=== PATIENT | female | born 1950 | race Caucasian/White ===

== ENCOUNTER → 2016-09-20 | Outpatient (CLI) | payer MEDICARE, OTHER ==
[~2016-09-20] MED LIST: BENA10TA2 PO; CYCL5TA PO; FE G325T PO; HYDR-3713 PO; LOVA20TA2 PO; METF500T PO; OMEP40CA2 PO
[2016-09-20 13:23] LABS: BASO % 0.3 % (0.0-1.0); EOS # 0.2 K/mm3 (0.0-0.50); EOS % 2.3 % (0.0-3.0); LARGE UNSTAINED CELL # 0.3 K/mm3 (0.0-0.4); LARGE UNSTAINED CELL % 3.2 % (0.0-4.0); LYMPH # 1.5 K/mm3 (1.5-4.5); LYMPH % 17.8 % (24.0-44.0); MEAN CORPUSCULAR HEMOGLOBIN 31.9 pg (27.0-33.0); MEAN CORPUSCULAR VOLUME 96.4 fl (80.0-96.0); MONO # 0.5 K/mm3 (0.0-0.8); MONO % 5.7 % (0.0-5.0); NEUTROPHILS # 5.8 K/mm3 (1.8-7.7); NEUTROPHILS % 70.7 % (36.0-66.0); PLATELET COUNT, AUTOMATED 307 k/mm3 (150-450); RED CELL DISTRIBUTION WIDTH 12.2 % (11.5-14.5); WHITE BLOOD COUNT 8.1 K/mm3 (4.0-10.0)
[2016-09-20 13:48] LABS: ALBUMIN 3.6 GM/DL (3.2-5.2); ALKALINE PHOSPHATASE 120 U/L (45-117); ALT/SGPT 19 U/L (12-78); ANION GAP 5 MEQ/L (8-16); AST/SGOT 15 U/L (15-37); BILIRUBIN,TOTAL 0.5 MG/DL (0.2-1.0); BLOOD UREA NITROGEN 11 MG/DL (7-18); CALCIUM LEVEL 8.7 MG/DL (8.8-10.2); CARBON DIOXIDE LEVEL 31 MEQ/L (21-32); CHLORIDE LEVEL 103 MEQ/L (98-107); CHOLESTEROL LEVEL 189 MG/DL (<200); CREATININE FOR GFR 0.76 MG/DL (0.55-1.02); GLOMERULAR FILTRATION RATE > 60.0 (>45); GLUCOSE, FASTING 112 MG/DL (80-110); POTASSIUM SERUM 4.6 MEQ/L (3.5-5.1); SODIUM LEVEL 139 MEQ/L (136-145); TOTAL PROTEIN 7.2 GM/DL (6.4-8.2); TRIGLYCERIDES LEVEL 152 MG/DL (<150)
== END ==
LOC: M WUC 08:45
PROVIDERS: ATTEND Nurse Practitioner Family
DX: D50.9 Iron deficiency anemia, unspecified (principal); I10 Essential (primary) hypertension; Z79.899 Other long term (current) drug therapy; E56.9 Vitamin deficiency, unspecified; E78.4 Other hyperlipidemia

== ENCOUNTER → 2016-09-21 | Outpatient (CLI) | payer MEDICARE, OTHER ==
--- NOTE | 2016-09-21 13:26 | REP ---
DIGITAL DIAGNOSTIC UNILATERAL RIGHT BREAST MAMMOGRAM WITH CAD: HISTORY: 6-month followup stereotactic needle biopsy for microcalcifications. Benign histology by history. Comparison is made with February 21, 2016 and February 17, 2015 prior mammography. FINDINGS: There are microcalcifications from the biopsy cluster remaining in place unchanged. No mass lesion is seen. There is a stable centrally/fat replaced nodule in the upper outer quadrant on the right unchanged. No neodensity is seen. IMPRESSION: BIRADS category 2 benign right breast mammography. Annual screening mammography can be resumed. BI-RADS/ACR category 2 mammogram. Benign finding(s). Routine annual screening mammography (for women over age 40). This mammogram was interpreted with the aid of an FDA-approved computer-aided detection system. The patient states she/he had a clinical breast exam in March 21, 2016. The patient letter being requested is M2. Signed by Nghia Orozco MD 09/21/2016 02:42 P
== END ==
LOC: M RAD 12:18
PROVIDERS: ATTEND Nurse Practitioner Family
DX: Z09 Encounter for follow-up examination after completed treatment for conditions other than malignant neoplasm (principal); R92.0 Mammographic microcalcification found on diagnostic imaging of breast

== ENCOUNTER → 2016-12-04 | Outpatient (CLI) | payer MEDICARE, OTHER ==
[2016-12-04 18:25] LABS: BASO % 0.4 % (0.0-1.0); EOS # 0.2 K/mm3 (0.0-0.50); EOS % 1.9 % (0.0-3.0); LARGE UNSTAINED CELL # 0.2 K/mm3 (0.0-0.4); LARGE UNSTAINED CELL % 2.1 % (0.0-4.0); LYMPH # 2.1 K/mm3 (1.5-4.5); LYMPH % 16.2 % (24.0-44.0); MEAN CORPUSCULAR HGB CONC 32.8 g/dl (32.0-36.5); MEAN CORPUSCULAR VOLUME 97.6 fl (80.0-96.0); MONO # 0.8 K/mm3 (0.0-0.8); NEUTROPHILS # 8.5 K/mm3 (1.8-7.7); NEUTROPHILS % 72.5 % (36.0-66.0); PLATELET COUNT, AUTOMATED 268 k/mm3 (150-450); RED CELL DISTRIBUTION WIDTH 12.4 % (11.5-14.5); WHITE BLOOD COUNT 11.7 K/mm3 (4.0-10.0)
== END ==
LOC: M WUC 14:34
PROVIDERS: ATTEND Nurse Practitioner Family
DX: K21.9 Gastro-esophageal reflux disease without esophagitis (principal); D63.8 Anemia in other chronic diseases classified elsewhere

== ENCOUNTER → 2017-02-26 | Outpatient (CLI) | payer MEDICARE, OTHER ==
[~2017-02-26] MED LIST changes: -BENA10TA2 PO; +BENA10TA6 PO; -METF500T PO; +METF500T13 PO
--- NOTE | 2017-02-27 07:59 | REPMRS ---
Patient History The patient states she had a clinical breast exam in 01/2017. Patient is postmenopausal and is nulliparous. Family history of ovarian cancer in mother at age 88 and breast cancer in mother at age 34. Benign radio exam breast specimen of the right breast, March 27, 2016. Benign stereotatic loc for ea lesion of the right breast, March 27, 2016. 2 benign excisional biopsies of the left breast. Benign excisional biopsy of the right breast. Digital Woman Screen Mammo: February 26, 2017 - Exam #: [id number] Bilateral CC and MLO view(s) were taken. Technologist: Kiana Bennett Technologist Prior study comparison: September 21, 2016, right breast digital mammo diagnostic unilateral, performed at . February 21, 2016, digital woman screen mammo performed at [facility]. February 17, 2015, digital woman screen mammo performed at [facility]. FINDINGS: There are scattered fibroglandular densities. There has been no change in the appearance of the mammogram from the prior studies. There is a mild amount of scattered fibroglandular density which is fairly symmetric. There is no interval development of dominant mass, architectural distortion, or clustered microcalcification suggestive of malignancy. ASSESSMENT: BI-RADS/ACR category 1 mammogram. Negative. Recommendation Routine screening mammogram in 1 year (for women over age 40). This mammogram was interpreted with the aid of an FDA-approved computer-aided dectection system. Electronically Signed By: Sumeet Orozco MD 02/27/17 0759
== END ==
LOC: M WHC 14:35
PROVIDERS: ATTEND Nurse Practitioner Family
DX: Z01.419 Encounter for gynecological examination (general) (routine) without abnormal findings (principal); Z12.31 Encounter for screening mammogram for malignant neoplasm of breast; Z92.89 Personal history of other medical treatment; Z12.12 Encounter for screening for malignant neoplasm of rectum; Z92.0 Personal history of contraception
CPT/HCPCS: 82270; G0101; G0202

== ENCOUNTER → 2017-04-02 | Outpatient (CLI) | payer MEDICARE, OTHER ==
[2017-04-02 10:22] LABS: BASO # 0.1 K/mm3 (0.0-0.2); BASO % 0.7 % (0.0-1.0); EOS # 0.2 K/mm3 (0.0-0.50); EOS % 2.1 % (0.0-3.0); LARGE UNSTAINED CELL # 0.2 K/mm3 (0.0-0.4); LARGE UNSTAINED CELL % 2.7 % (0.0-4.0); LYMPH # 1.7 K/mm3 (1.5-4.5); LYMPH % 18.9 % (24.0-44.0); MEAN CORPUSCULAR HEMOGLOBIN 32.5 pg (27.0-33.0); MEAN CORPUSCULAR HGB CONC 32.9 g/dl (32.0-36.5); MEAN CORPUSCULAR VOLUME 98.7 fl (80.0-96.0); MONO # 0.5 K/mm3 (0.0-0.8); MONO % 6.2 % (0.0-5.0); NEUTROPHILS # 5.5 K/mm3 (1.8-7.7); NEUTROPHILS % 69.5 % (36.0-66.0); PLATELET COUNT, AUTOMATED 271 k/mm3 (150-450); RED CELL DISTRIBUTION WIDTH 12.8 % (11.5-14.5); WHITE BLOOD COUNT 7.9 K/mm3 (4.0-10.0)
[2017-04-02 10:40] LABS: BLOOD UREA NITROGEN 14 MG/DL (7-18); CREATININE FOR GFR 0.67 MG/DL (0.55-1.02); GLOMERULAR FILTRATION RATE > 60.0 (>45); GLUCOSE, FASTING 129 MG/DL (80-110)
[2017-04-02 10:41] LABS: ALBUMIN 3.4 GM/DL (3.2-5.2); ALBUMIN/GLOBULIN RATIO 1.03 (1.00-1.93); ALKALINE PHOSPHATASE 119 U/L (45-117); ALT/SGPT 20 U/L (12-78); ANION GAP 9 MEQ/L (8-16); AST/SGOT 13 U/L (15-37); BILIRUBIN,TOTAL 0.5 MG/DL (0.2-1.0); CALCIUM LEVEL 9.2 MG/DL (8.8-10.2); CARBON DIOXIDE LEVEL 28 MEQ/L (21-32); CHLORIDE LEVEL 103 MEQ/L (98-107); CHOLESTEROL LEVEL 190 MG/DL (<200); SODIUM LEVEL 140 MEQ/L (136-145); TOTAL PROTEIN 6.7 GM/DL (6.4-8.2); TRIGLYCERIDES LEVEL 127 MG/DL (<150)
== END ==
LOC: M WUC 08:23
PROVIDERS: ATTEND Nurse Practitioner Family
DX: K21.9 Gastro-esophageal reflux disease without esophagitis (principal); D63.8 Anemia in other chronic diseases classified elsewhere; E56.9 Vitamin deficiency, unspecified; Z79.899 Other long term (current) drug therapy; E11.9 Type 2 diabetes mellitus without complications; I10 Essential (primary) hypertension

== ENCOUNTER → 2017-10-31 | Outpatient (CLI) | payer MEDICARE, OTHER ==
[2017-10-31 13:25] LABS: BASO # 0.1 10^3/uL (0.0-0.2); BASO % 0.6 % (0.0-1.0); EOS # 0.1 10^3/uL (0.0-0.50); EOS % 1.8 % (0.0-3.0); HEMATOCRIT 44.2 % (36.0-47.0); HEMOGLOBIN 14.6 g/dl (12.0-16.0); IMMATURE GRANULOCYTE % 0.3 % (0-3.0); LYMPH # 1.6 10^3/uL (1.5-4.5); LYMPH % 20.6 % (24.0-44.0); MEAN CORPUSCULAR HEMOGLOBIN 31.3 pg (27.0-33.0); MEAN CORPUSCULAR VOLUME 94.8 fl (80.0-96.0); MONO # 0.7 10^3/uL (0.0-0.8); MONO % 8.2 % (0.0-5.0); NEUTROPHILS # 5.5 10^3/uL (1.8-7.7); NEUTROPHILS % 68.5 % (36.0-66.0); PLATELET COUNT, AUTOMATED 297 10^3/uL (150-450); RED BLOOD COUNT 4.66 10^6/uL (4.00-5.40); RED CELL DISTRIBUTION WIDTH 12.8 % (11.5-14.5)
[2017-10-31 14:16] LABS: ALBUMIN 3.5 GM/DL (3.2-5.2); ALBUMIN/GLOBULIN RATIO 0.92 (1.00-1.93); ALKALINE PHOSPHATASE 128 U/L (45-117); ALT/SGPT 17 U/L (12-78); ANION GAP 9 MEQ/L (8-16); AST/SGOT 16 U/L (7-37); BILIRUBIN,TOTAL 0.5 MG/DL (0.2-1.0); BLOOD UREA NITROGEN 12 MG/DL (7-18); CALCIUM LEVEL 8.7 MG/DL (8.8-10.2); CARBON DIOXIDE LEVEL 28 MEQ/L (21-32); CHLORIDE LEVEL 102 MEQ/L (98-107); CHOLESTEROL LEVEL 193 MG/DL (<200); CHOLESTEROL RISK RATIO 5.078 (<5); CREATININE FOR GFR 0.74 MG/DL (0.55-1.30); GLOMERULAR FILTRATION RATE > 60.0 (>45); GLUCOSE, FASTING 105 MG/DL (70-100); HDL CHOLESTEROL 38 MG/DL (>40); IRON (FE) 80 UG/DL (50-170); LDL CHOLESTEROL 123.4 MG/DL (<100); NON-HDL-C 155 MG/DL; POTASSIUM SERUM 4.9 MEQ/L (3.5-5.1); SODIUM LEVEL 139 MEQ/L (136-145); TOTAL PROTEIN 7.3 GM/DL (6.4-8.2); TRIGLYCERIDES LEVEL 158 MG/DL (<150)
[2017-10-31 14:45] LABS: ESTIMATED AVERAGE GLUCOSE 137 MG/DL (60-110); HEMOGLOBIN A1c 6.4 %
[2017-10-31 15:07] LABS: TOTAL 25(OH) VITAMIN D 18.5 NG/ML (30.0-100.0)
== END ==
LOC: M WUC 10:10
DX: E56.9 Vitamin deficiency, unspecified (principal); D63.8 Anemia in other chronic diseases classified elsewhere; E11.9 Type 2 diabetes mellitus without complications; I10 Essential (primary) hypertension; E78.4 Other hyperlipidemia; Z79.899 Other long term (current) drug therapy
CPT/HCPCS: 83540

== ENCOUNTER → 2018-01-28 | Outpatient (CLI) | payer MEDICARE, OTHER ==
[2018-01-28 18:53] LABS: TOTAL 25(OH) VITAMIN D 33.4 NG/ML (30.0-100.0)
== END ==
LOC: M WUC 14:09
DX: E56.9 Vitamin deficiency, unspecified (principal)
CPT/HCPCS: 82306

== ENCOUNTER → 2018-05-07 | Outpatient (CLI) | payer MEDICARE, OTHER ==
[2018-05-07 12:16] LABS: BASO % 0.3 % (0.0-1.0); EOS # 0.2 10^3/uL (0.0-0.50); EOS % 1.3 % (0.0-3.0); HEMATOCRIT 43.3 % (36.0-47.0); HEMOGLOBIN 14.1 g/dl (12.0-15.5); IMMATURE GRANULOCYTE % 0.6 % (0-3.0); LYMPH # 1.6 10^3/uL (1.5-4.5); LYMPH % 13.6 % (24.0-44.0); MEAN CORPUSCULAR HGB CONC 32.6 g/dl (32.0-36.5); MEAN CORPUSCULAR VOLUME 98.4 fl (80.0-96.0); MONO # 0.9 10^3/uL (0.0-0.8); MONO % 8.1 % (0.0-5.0); NEUTROPHILS # 8.8 10^3/uL (1.8-7.7); NEUTROPHILS % 76.1 % (36.0-66.0); PLATELET COUNT, AUTOMATED 289 10^3/uL (150-450); RED CELL DISTRIBUTION WIDTH 12.6 % (11.5-14.5); WHITE BLOOD COUNT 11.6 10^3/uL (4.0-10.0)
[2018-05-07 12:41] LABS: CHOLESTEROL LEVEL 189 MG/DL (<200); CHOLESTEROL RISK RATIO 5.108 (<5); HDL CHOLESTEROL 37 MG/DL (>40); LDL CHOLESTEROL 115.2 MG/DL (<100); NON-HDL-C 152 MG/DL; TRIGLYCERIDES LEVEL 184 MG/DL (<150)
[2018-05-07 13:11] LABS: TOTAL 25(OH) VITAMIN D 31.9 NG/ML (30.0-100.0)
[2018-05-07 15:56] LABS: ESTIMATED AVERAGE GLUCOSE 146 MG/DL (60-110); HEMOGLOBIN A1c 6.7 %
== END ==
LOC: M WUC 10:37
DX: E78.4 Other hyperlipidemia (principal); E11.9 Type 2 diabetes mellitus without complications; E56.9 Vitamin deficiency, unspecified; K21.9 Gastro-esophageal reflux disease without esophagitis
CPT/HCPCS: 83036

== ENCOUNTER → 2018-11-12 | Outpatient (CLI) | payer MEDICARE, OTHER ==
[2018-11-12 11:55] LABS: BASO # 0.1 10^3/uL (0.0-0.2); BASO % 0.5 % (0.0-1.0); EOS # 0.2 10^3/uL (0.0-0.50); EOS % 1.8 % (0.0-3.0); HEMATOCRIT 42.6 % (36.0-47.0); HEMOGLOBIN 13.9 g/dl (12.0-15.5); LYMPH # 1.6 10^3/uL (1.5-4.5); LYMPH % 16.7 % (24.0-44.0); MEAN CORPUSCULAR HEMOGLOBIN 31.8 pg (27.0-33.0); MEAN CORPUSCULAR HGB CONC 32.6 g/dl (32.0-36.5); MEAN CORPUSCULAR VOLUME 97.5 fl (80.0-96.0); MONO # 0.9 10^3/uL (0.0-0.8); MONO % 9.1 % (0.0-5.0); NEUTROPHILS # 6.7 10^3/uL (1.8-7.7); NEUTROPHILS % 71.5 % (36.0-66.0); PLATELET COUNT, AUTOMATED 287 10^3/uL (150-450); RED BLOOD COUNT 4.37 10^6/uL (4.00-5.40); WHITE BLOOD COUNT 9.4 10^3/uL (4.0-10.0)
[2018-11-12 12:25] LABS: ALBUMIN 3.5 GM/DL (3.2-5.2); ALT/SGPT 25 U/L (12-78); BILIRUBIN,TOTAL 0.5 MG/DL (0.2-1.0); BLOOD UREA NITROGEN 13 MG/DL (7-18); CALCIUM LEVEL 8.8 MG/DL (8.8-10.2); CARBON DIOXIDE LEVEL 30 MEQ/L (21-32); CHLORIDE LEVEL 104 MEQ/L (98-107); CHOLESTEROL LEVEL 192 MG/DL (<200); CHOLESTEROL RISK RATIO 5.333 (<5); CREATININE FOR GFR 0.83 MG/DL (0.55-1.30); GLOMERULAR FILTRATION RATE > 60.0 (>45); GLUCOSE, FASTING 141 MG/DL (70-100); HDL CHOLESTEROL 36 MG/DL (>40); IRON (FE) 84 UG/DL (50-170); LDL CHOLESTEROL 124 MG/DL (<100); NON-HDL-C 156 MG/DL; SODIUM LEVEL 141 MEQ/L (136-145); TOTAL PROTEIN 6.9 GM/DL (6.4-8.2); TRIGLYCERIDES LEVEL 160 MG/DL (<150)
[2018-11-12 13:48] LABS: HEMOGLOBIN A1c 6.9 %
== END ==
LOC: M WUC 10:11
PROVIDERS: ATTEND Nurse Practitioner Family
DX: I10 Essential (primary) hypertension (principal); E55.9 Vitamin D deficiency, unspecified; D50.9 Iron deficiency anemia, unspecified

== ENCOUNTER → 2019-04-23 | Outpatient (CLI) | payer MEDICARE, OTHER ==
[~2019-04-23] MED LIST changes: -BENA10TA6 PO; +BENA10TA9 PO; -CYCL5TA PO; +CYCL5TAB5 PO
[2019-04-23 13:01] LABS: BASO % 0.3 % (0.0-1.0); EOS # 0.2 10^3/uL (0.0-0.50); EOS % 1.9 % (0.0-3.0); HEMATOCRIT 45.1 % (36.0-47.0); HEMOGLOBIN 14.7 g/dl (12.0-15.5); LYMPH # 1.6 10^3/uL (1.5-4.5); LYMPH % 16.1 % (24.0-44.0); MEAN CORPUSCULAR HEMOGLOBIN 32.8 pg (27.0-33.0); MEAN CORPUSCULAR HGB CONC 32.6 g/dl (32.0-36.5); MEAN CORPUSCULAR VOLUME 100.7 fl (80.0-96.0); MONO # 0.9 10^3/uL (0.0-0.8); MONO % 9.3 % (0.0-5.0); NEUTROPHILS # 7.3 10^3/uL (1.8-7.7); NEUTROPHILS % 72.1 % (36.0-66.0); PLATELET COUNT, AUTOMATED 299 10^3/uL (150-450); RED BLOOD COUNT 4.48 10^6/uL (4.00-5.40); WHITE BLOOD COUNT 10.1 10^3/uL (4.0-10.0)
[2019-04-23 14:02] LABS: HEMOGLOBIN A1c 7.1 %
[2019-04-23 14:21] LABS: ALBUMIN 3.5 GM/DL (3.2-5.2); ALT/SGPT 18 U/L (12-78); BILIRUBIN,TOTAL 0.5 MG/DL (0.2-1.0); BLOOD UREA NITROGEN 11 MG/DL (7-18); CARBON DIOXIDE LEVEL 28 MEQ/L (21-32); CHLORIDE LEVEL 103 MEQ/L (98-107); CHOLESTEROL LEVEL 177 MG/DL (<200); CHOLESTEROL RISK RATIO 4.916 (<5); CREATININE FOR GFR 0.75 MG/DL (0.55-1.30); GLOMERULAR FILTRATION RATE > 60.0 (>45); GLUCOSE, FASTING 126 MG/DL (70-100); HDL CHOLESTEROL 36 MG/DL (>40); IRON (FE) 82 UG/DL (50-170); LDL CHOLESTEROL 112 MG/DL (<100); NON-HDL-C 141 MG/DL; POTASSIUM SERUM 4.9 MEQ/L (3.5-5.1); SODIUM LEVEL 140 MEQ/L (136-145); TOTAL 25(OH) VITAMIN D 29.1 NG/ML (30.0-100.0); TOTAL PROTEIN 6.8 GM/DL (6.4-8.2); TRIGLYCERIDES LEVEL 146 MG/DL (<150)
== END ==
LOC: M WUC 10:17
PROVIDERS: ATTEND Nurse Practitioner Family
DX: E55.9 Vitamin D deficiency, unspecified (principal); I10 Essential (primary) hypertension; E11.9 Type 2 diabetes mellitus without complications; D50.9 Iron deficiency anemia, unspecified; E78.49 Other hyperlipidemia

== ENCOUNTER → 2019-12-14 | Outpatient (CLI) | payer MEDICARE, OTHER ==
[~2019-12-14] MED LIST changes: -BENA10TA9 PO; +BENA1TAB24 PO; -OMEP40CA2 PO; +OMEP40CA97 PO
[2019-12-14 09:39] LABS: BASO % 0.4 % (0.0-1.0); EOS # 0.2 10^3/uL (0.0-0.5); EOS % 2.5 % (0.0-3.0); HEMATOCRIT 43.6 % (36.0-47.0); HEMOGLOBIN 14.3 g/dl (12.0-15.5); LYMPH # 1.8 10^3/uL (1.5-5.0); LYMPH % 20.3 % (24.0-44.0); MEAN CORPUSCULAR HEMOGLOBIN 32.5 pg (27.0-33.0); MEAN CORPUSCULAR HGB CONC 32.8 g/dl (32.0-36.5); MEAN CORPUSCULAR VOLUME 99.1 fl (80.0-96.0); MONO # 0.8 10^3/uL (0.0-0.8); MONO % 8.8 % (0.0-5.0); NEUTROPHILS # 6.1 10^3/uL (1.5-8.5); NEUTROPHILS % 67.4 % (36.0-66.0); PLATELET COUNT, AUTOMATED 287 10^3/uL (150-450); WHITE BLOOD COUNT 9.1 10^3/uL (4.0-10.0)
[2019-12-14 10:09] LABS: H PYLORI QUALITATIVE IgG NEGATIVE (NEGATIVE)
[2019-12-14 10:16] LABS: ALBUMIN 3.5 GM/DL (3.2-5.2); ALT/SGPT 20 U/L (12-78); BILIRUBIN,DIRECT 0.1 MG/DL (0.0-0.2); BILIRUBIN,TOTAL 0.5 MG/DL (0.2-1.0); BLOOD UREA NITROGEN 14 MG/DL (7-18); CREATININE FOR GFR 0.78 MG/DL (0.55-1.30); FERRITIN 158 NG/ML (8-252); GLOMERULAR FILTRATION RATE > 60.0 (>45); IRON (FE) 79 UG/DL (50-170); PERCENT SATURATION 28.5 % (13.2-45.0); TOTAL IRON BINDING CAPACITY 277 UG/DL (250-450); TOTAL PROTEIN 7.1 GM/DL (6.4-8.2)
== END ==
LOC: M WUC 08:02
PROVIDERS: ATTEND Internal Medicine Gastroenterology
DX: R10.10 Upper abdominal pain, unspecified (principal); Z79.84 Long term (current) use of oral hypoglycemic drugs; Z79.899 Other long term (current) drug therapy

== ENCOUNTER → 2019-12-17 | Outpatient (CLI) | payer MEDICARE, OTHER ==
[~2019-12-17] MED LIST changes: +GASTROGRAFIN SOLUTION 30ML (Q9963) As Ordered ONE; +ISOVUE-370 76% 100ML VIAL (Q9967) As Ordered ONE
--- NOTE | 2019-12-17 12:18 | REP ---
REASON FOR EXAM: Weight loss and abdominal discomfort. The latest prior for comparison is 04/22/2015. Contrast today 75 mL of Isovue 370. The lung bases are stable. There are no pleural or pericardial effusions. The liver, gallbladder, spleen, pancreas, adrenal glands, kidneys are within normal limits. The abdominal aorta and para-aortic regions are within normal limits. There is no free fluid or free air. There is no intra-abdominal mass or adenopathy. There is an unchanged ventral hernia through which a knuckle of small bowel protrudes. There is no intestinal obstruction. There is no mesenteric fatty infiltration. The bowel loops and their mesenteries are otherwise unremarkable. CT PELVIS: There is no mass or adenopathy. There is no free fluid or free air. There is sigmoid colon diverticulosis. Bone window technique through the examination shows the osseous structures to be stable and intact. Small degenerative changes are noted status quo. IMPRESSION: There is a ventral hernia as described above. It is essentially unchanged. There is no evidence of acute intra-abdominal or intrapelvic disease. Findings as described above. Electronically Signed by Carlton Villafuerte DO 12/17/2019 12:34 P
== END ==
LOC: M RAD 09:05
PROVIDERS: ATTEND Internal Medicine Gastroenterology
DX: R63.4 Abnormal weight loss (principal); R10.10 Upper abdominal pain, unspecified
CPT/HCPCS: 74177; Q9963; Q9967

== ENCOUNTER → 2020-02-22 | Outpatient (CLI) | payer MEDICARE, OTHER ==
[~2020-02-22] MED LIST changes: +FERR32TA PO; -GASTROGRAFIN SOLUTION 30ML (Q9963) As Ordered ONE; -ISOVUE-370 76% 100ML VIAL (Q9967) As Ordered ONE
== END ==
LOC: M LABSMTC 09:47
PROVIDERS: ATTEND Anesthesiology
DX: Z03.818 Encounter for observation for suspected exposure to other biological agents ruled out (principal); Z11.59 Encounter for screening for other viral diseases
CPT/HCPCS: C9803; U0003

== ENCOUNTER 2020-02-25 08:52 | Day surgery (SDC) | payer MEDICARE, OTHER ==
[~2020-02-25] VITALS: Ht 149.9 cm; Wt 97.9 kg
[~2020-02-25 08:52] MED LIST changes: +NS 1,000 ML IV ONE
[2020-02-25] MEDS ORDERED: fentaNYL 100 MCG/2 ML INJECTION (J3010) As Ordered ONE (10:12)
[2020-02-25] MEDS ORDERED: propofoL 500 MG/50 ML VIAL As Ordered ONE (10:12)
[2020-02-25] MEDS ORDERED: LIDOCAINE 2% 100MG/5ML SDV (FOR ANES.) As Ordered ONE (10:12)
--- NOTE | 2020-02-25 10:57 | ROOR ---
Patient Name: Asia Santamaria Procedure Date: 02/25/2020 10:07 AM Date of : 1950 Age: 69 Room: [facility] Gender: Female Note Status: Finalized Procedure: Upper GI endoscopy Indications: Epigastric abdominal pain, Dyspepsia Providers: Russ Gray MD Referring MD: Brandyn Abraham MD Requesting Provider: Medicines: Monitored Anesthesia Care Complications: No immediate complications. Procedure: Pre-Anesthesia Assessment: - Prior to the procedure, a History and Physical was performed, and patient medications and allergies were reviewed. The patient is competent. The risks and benefits of the procedure and the sedation options and risks were discussed with the patient. All questions were answered and informed consent was obtained. Patient identification and proposed procedure were verified by the physician, the nurse and the anesthesiologist in the procedure room. Mental Status Examination: alert and oriented. Airway Examination: normal oropharyngeal airway and neck mobility. Respiratory Examination: clear to auscultation. CV Examination: normal. Prophylactic Antibiotics: The patient does not require prophylactic antibiotics. Prior Anticoagulants: The patient has taken no previous anticoagulant or antiplatelet agents. ASA Grade Assessment: II - A patient with mild systemic disease. After reviewing the risks and benefits, the patient was deemed in satisfactory condition to undergo the procedure. The anesthesia plan was to use monitored anesthesia care (MAC). Immediately prior to administration of medications, the patient was re-assessed for adequacy to receive sedatives. The heart rate, respiratory rate, oxygen saturations, blood pressure, adequacy of pulmonary ventilation, and response to care were monitored throughout the procedure. The physical status of the patient was re-assessed after the procedure. The Endoscope was introduced through the mouth, and advanced to the second part of duodenum. The upper GI endoscopy was accomplished without difficulty. The patient tolerated the procedure well. Findings: LA Grade A (one or more mucosal breaks less than 5 mm, not extending between tops of 2 mucosal folds) esophagitis with no bleeding was found in the distal esophagus. Biopsies were taken with a cold forceps for histology. Verification of patient identification for the specimen was done by the physician and nurse using the patient's name, date and medical record number. Estimated blood loss was minimal. Scattered moderate inflammation characterized by erythema, friability and granularity was found in the gastric body and in the gastric antrum. Biopsies were taken with a cold forceps for histology. Multiple 8 mm pedunculated and sessile polyps with no bleeding and no stigmata of recent bleeding were found in the gastric fundus and in the gastric body. Biopsies were taken with a cold forceps for histology. The duodenal bulb and second portion of the duodenum were normal. Biopsies for histology were taken with a cold forceps for evaluation of celiac disease. Impression: - LA Grade A reflux esophagitis. Rule out Perry's esophagus. Biopsied. - Gastritis. Biopsied. - Multiple gastric polyps. Biopsied. - Normal duodenal bulb and second portion of the duodenum. Biopsied. Recommendation: - Patient has a contact number available for emergencies. The signs and symptoms of potential delayed complications were discussed with the patient. Return to normal activities tomorrow. Written discharge instructions were provided to the patient. - High fiber diet. - Continue present medications. - Await pathology results. - Follow an antireflux regimen. - Telephone GI clinic for pathology results in 2 weeks. - Return to primary care physician. Russ Gray MD Russ Gray MD 02/25/2020 10:56:44 AM Electronically signed by Russ Gray MD Number of Addenda: 0 Note Initiated On: 02/25/2020 10:07 AM Estimated Blood Loss: Estimated blood loss was minimal.
[2020-02-25 11:10] VITALS: BP 134/69
== END 2020-02-25 10:43 | disposition home or self-care (01) ==
LOC: M OPP 08:52
PROVIDERS: ATTEND Internal Medicine Gastroenterology
DX: K21.0 Gastro-esophageal reflux disease with esophagitis (principal); K29.70 Gastritis, unspecified, without bleeding; K31.7 Polyp of stomach and duodenum; R10.13 Epigastric pain; E11.9 Type 2 diabetes mellitus without complications; Z79.84 Long term (current) use of oral hypoglycemic drugs; Z79.891 Long term (current) use of opiate analgesic; Z79.899 Other long term (current) drug therapy; Z88.0 Allergy status to penicillin; Z88.1 Allergy status to other antibiotic agents; Z88.5 Allergy status to narcotic agent
CPT/HCPCS: 43239; 88305; J3010

== ENCOUNTER → 2020-08-02 | Outpatient (CLI) | payer MEDICARE, OTHER ==
[~2020-08-02] MED LIST changes: -NS 1,000 ML IV ONE
[2020-08-02 11:09] LABS: HEMATOCRIT 43.5 % (36.0-47.0); HEMOGLOBIN 13.6 g/dl (12.0-15.5); MEAN CORPUSCULAR HEMOGLOBIN 30.8 pg (27.0-33.0); MEAN CORPUSCULAR HGB CONC 31.3 g/dl (32.0-36.5); MEAN CORPUSCULAR VOLUME 98.4 fl (80.0-96.0); PLATELET COUNT, AUTOMATED 287 10^3/uL (150-450); RED BLOOD COUNT 4.42 10^6/uL (4.00-5.40); WHITE BLOOD COUNT 8.6 10^3/uL (4.0-10.0)
[2020-08-02 11:28] LABS: HEMOGLOBIN A1c 6.5 %
[2020-08-02 11:40] LABS: ALBUMIN 3.2 GM/DL (3.2-5.2); ALT/SGPT 16 U/L (12-78); BILIRUBIN,TOTAL 0.4 MG/DL (0.2-1.0); BLOOD UREA NITROGEN 14 MG/DL (7-18); CARBON DIOXIDE LEVEL 30 MEQ/L (21-32); CHLORIDE LEVEL 105 MEQ/L (98-107); CHOLESTEROL LEVEL 195 MG/DL (<200); CHOLESTEROL RISK RATIO 5.416 (<5); CREATININE FOR GFR 0.87 MG/DL (0.55-1.30); FERRITIN 160 NG/ML (8-252); GLOMERULAR FILTRATION RATE > 60.0 (>39); GLUCOSE, FASTING 123 MG/DL (70-100); HDL CHOLESTEROL 36 MG/DL (>40); IRON (FE) 78 UG/DL (50-170); LDL CHOLESTEROL 129 MG/DL (<100); NON-HDL-C 159 MG/DL; PERCENT SATURATION 30.4 % (13.2-45.0); SODIUM LEVEL 139 MEQ/L (136-145); TOTAL IRON BINDING CAPACITY 257 UG/DL (250-450); TOTAL PROTEIN 6.6 GM/DL (6.4-8.2); TRIGLYCERIDES LEVEL 148 MG/DL (<150)
[2020-08-02 11:45] LABS: TOTAL 25(OH) VITAMIN D 23.6 NG/ML (30.0-100.0)
[2020-08-02 11:48] LABS: MALB URINE SIEMENS 6.2 MG/L; MAU/CREAT RATIO 5.7 MCG/MG (0.0-30.0)
== END ==
LOC: M WUC 08:25
PROVIDERS: ATTEND Family Medicine
DX: E55.9 Vitamin D deficiency, unspecified (principal); E50.9 Vitamin A deficiency, unspecified; E11.9 Type 2 diabetes mellitus without complications

== ENCOUNTER → 2021-01-25 | Outpatient (CLI) | payer MEDICARE, OTHER ==
--- NOTE | 2021-01-25 10:30 | REP ---
INDICATION: PAIN RIGHT KNEE. COMPARISON: None. TECHNIQUE: Amory and weightbearing AP and lateral view of the right knee FINDINGS: Marked advanced tricompartmental osteoarthritic degenerative changes are appreciated. Findings include significant osteophytosis, near complete joint space obliteration, and small amounts of chondrocalcinosis as well as suspected suprapatellar effusion on lateral radiograph. No obvious acute fracture or dislocation. IMPRESSION: Marked advanced tricompartmental osteoarthritic degenerative changes. <Electronically signed by Klaus Ríos > 01/25/21 1025
== END ==
LOC: M SOG 10:00
PROVIDERS: ATTEND Orthopaedic Surgery Adult Reconstructive Orthopaedic Surgery
DX: M17.11 Unilateral primary osteoarthritis, right knee (principal); M25.561 Pain in right knee

== ENCOUNTER → 2021-02-03 | Outpatient (CLI) | payer MEDICARE, OTHER ==
[~2021-02-03] MED LIST changes: +BUPIVACAINE HCL 0.5% 10ML VIAL As Ordered ONE; +LIDOCAINE 1% MDV 20ML VIAL As Ordered ONE; +methylPREDNISolone 80MG/ML SUSP 1ML VIAL (J1040) As Ordered ONE
--- NOTE | 2021-02-03 16:41 | REP ---
INDICATION: TROCHANTERIC BURSITIS. COMPARISON: None. TECHNIQUE: The procedure was performed under the direct supervision of Dr. Cantu. The risks and benefits of the procedure were explained to the patient and informed consent was obtained. The right greater trochanteric bursa was localized using ultrasound guidance. The skin was prepped and draped in a sterile fashion. 1% lidocaine was used as a local anesthetic. Using ultrasound guidance a 22 gauge spinal needle was inserted and advanced into the bursa. 6 cc of a solution containing 5 cc of 0.5% Marcaine and 1 cc of Depo-Medrol 80 mg was injected. The needle was then removed. The patient tolerated the procedure well and there were no immediate complications. FINDINGS: None IMPRESSION: Ultrasound-guided right greater trochanteric bursa injection. <Electronically signed by Kenny Antoine > 02/03/21 1627 <Electronically signed by Blake Cantu > 02/03/21 0999
== END ==
LOC: M IRPRO 14:00
PROVIDERS: ATTEND Orthopaedic Surgery Adult Reconstructive Orthopaedic Surgery
DX: M70.61 Trochanteric bursitis, right hip (principal)
CPT/HCPCS: 20611; J1040

== ENCOUNTER → 2021-03-02 | Outpatient (CLI) | payer MEDICARE, OTHER ==
[~2021-03-02] MED LIST changes: -BUPIVACAINE HCL 0.5% 10ML VIAL As Ordered ONE; -LIDOCAINE 1% MDV 20ML VIAL As Ordered ONE; +OMEP40CA4 PO; -OMEP40CA97 PO; -methylPREDNISolone 80MG/ML SUSP 1ML VIAL (J1040) As Ordered ONE
[2021-03-02 13:48] LABS: HEMATOCRIT 44.5 % (36.0-47.0); HEMOGLOBIN 14.1 g/dl (12.0-15.5); MEAN CORPUSCULAR HEMOGLOBIN 31.8 pg (27.0-33.0); MEAN CORPUSCULAR HGB CONC 31.7 g/dl (32.0-36.5); MEAN CORPUSCULAR VOLUME 100.2 fl (80.0-96.0); PLATELET COUNT, AUTOMATED 308 10^3/uL (150-450); RED BLOOD COUNT 4.44 10^6/uL (4.00-5.40); WHITE BLOOD COUNT 10.2 10^3/uL (4.0-10.0)
[2021-03-02 14:46] LABS: HEMOGLOBIN A1c 6.7 %
[2021-03-02 15:17] LABS: ALBUMIN 3.4 GM/DL (3.2-5.2); ALT/SGPT 18 U/L (12-78); BILIRUBIN,TOTAL 0.5 MG/DL (0.2-1.0); BLOOD UREA NITROGEN 15 MG/DL (7-18); CALCIUM LEVEL 8.8 MG/DL (8.8-10.2); CARBON DIOXIDE LEVEL 30 MEQ/L (21-32); CHLORIDE LEVEL 106 MEQ/L (98-107); CHOLESTEROL LEVEL 206 MG/DL (<200); CHOLESTEROL RISK RATIO 5.421 (<5); CREATININE FOR GFR 0.73 MG/DL (0.55-1.30); GLOMERULAR FILTRATION RATE > 60.0 (>39); GLUCOSE, FASTING 134 MG/DL (70-100); HDL CHOLESTEROL 38 MG/DL (>40); LDL CHOLESTEROL 133 MG/DL (<100); NON-HDL-C 168 MG/DL; POTASSIUM SERUM 4.6 MEQ/L (3.5-5.1); SODIUM LEVEL 139 MEQ/L (136-145); TOTAL PROTEIN 6.8 GM/DL (6.4-8.2); TRIGLYCERIDES LEVEL 174 MG/DL (<150)
[2021-03-02 15:54] LABS: MALB URINE SIEMENS 10.9 MG/L; MAU/CREAT RATIO 6.7 MCG/MG (0.0-30.0)
== END ==
LOC: M WUC 10:30
PROVIDERS: ATTEND Family Medicine
DX: E55.9 Vitamin D deficiency, unspecified (principal); E11.9 Type 2 diabetes mellitus without complications; Z79.899 Other long term (current) drug therapy

== ENCOUNTER → 2021-03-13 | Outpatient (CLI) | payer MEDICARE, OTHER ==
--- NOTE | 2021-03-13 10:55 | REPMRS ---
Patient History The patient states she had a clinical breast exam in January 2021. Patient is postmenopausal and is nulliparous. Family history of breast cancer at age 34 and ovarian cancer at age 88 in mother, pancreatic cancer at age 58 in sister. Benign radio exam breast specimen of the right breast, March 27, 2016. Benign stereotatic loc for ea lesion of the right breast, March 27, 2016. 2 benign excisional biopsies of the left breast. Benign excisional biopsy of the right breast. Patient states no breast complaints today. Patient has signed MRS History Sheet. Digital Woman Screen Mammo: March 13, 2021 - Exam #: [id number] Bilateral MLO and CC view(s) were taken. CV view(s) were taken of the left breast. Technologist: Maris Hagen, Technologist Prior study comparison: February 26, 2017, digital woman screen mammo performed at [facility]. September 21, 2016, right breast digital mammo diagnostic unilateral, performed at [facility]. FINDINGS: There are scattered fibroglandular densities. Screening. Digital screening (2D) mammography was performed bilaterally in the CC and MLO projections. Additionally, breast tomosynthesis (3D mammography) was performed bilaterally in the CC and MLO projections. Todays exam was compared to the prior exam/exams. By history, the patient has no complaints of a palpable breast abnormality or other significant breast complaints. The breasts are unchanged in size and shape. There are no kayleigh-soft tissue densities or spiculated masses. There is no internal architectural distortion.Once again, stable benign appearing calcifications are seen. There are no suspicious kayleigh-calcific clusters. Skin thickening or nipple retraction is not present. IMPRESSION: BI-RADS Category 2- Benign Findings. There is no evidence of malignant alteration of the breasts. Followup examination recommended in one year. The Volpara volumetric breast density category is B, there are scattered areas of fibroglandular densities. This mammogram was read with the assistance of [employer]at[employer] Ovelin,an FDA approved computer aided detection system for mammography. The lifetime Tyrer-Cuzick score is 24.8 % Due to the density of the breasts or Tyrer Cuzick score of 20% or greater, MRI/whole breast screening ultrasound is warranted. Negative x-ray reports should not delay surgical consultation if a dominant or clinically suspicious mass is present. Not all breast cancers can be identified by mammography. Therefore, we recommend that you continue to perform regular breast self-examination and physical examination and then promptly contact your physician of any concerns or changes. Adenosis and dense breasts may obscure an underlying neoplasm. Assessment: BI-RADS/ACR category 2 mammogram. Benign Findings. Recommendation Routine screening mammogram of both breasts in 1 year. Electronically Signed By: Carlton Villafuerte DO 03/13/21 2828
== END ==
LOC: M WHC 09:53
PROVIDERS: ATTEND Nurse Practitioner Women's Health
DX: Z12.31 Encounter for screening mammogram for malignant neoplasm of breast (principal); Z78.0 Asymptomatic menopausal state; Z80.3 Family history of malignant neoplasm of breast; Z80.41 Family history of malignant neoplasm of ovary; Z80.8 Family history of malignant neoplasm of other organs or systems; Z98.890 Other specified postprocedural states

== ENCOUNTER → 2021-07-25 | Outpatient (CLI) | payer MEDICARE, OTHER ==
[~2021-07-25] MED LIST changes: +OMEP-221 PO
== END ==
LOC: M PT 12:15
PROVIDERS: ATTEND Orthopaedic Surgery Adult Reconstructive Orthopaedic Surgery
DX: Z96.651 Presence of right artificial knee joint (principal)

== ENCOUNTER → 2021-07-28 | Outpatient (CLI) | payer MEDICARE, OTHER ==
[2021-07-28 12:40] LABS: BASO % 0.4 % (0.0-1.0); EOS # 0.1 10^3/uL (0.0-0.5); EOS % 1.5 % (0.0-3.0); HEMATOCRIT 43.6 % (36.0-47.0); LYMPH % 22.1 % (24.0-44.0); MEAN CORPUSCULAR HEMOGLOBIN 31.4 pg (27.0-33.0); MEAN CORPUSCULAR HGB CONC 32.1 g/dl (32.0-36.5); MEAN CORPUSCULAR VOLUME 97.8 fl (80.0-96.0); MONO # 0.8 10^3/uL (0.0-0.8); MONO % 9.2 % (2.0-8.0); NEUTROPHILS # 6.1 10^3/uL (1.5-8.5); NEUTROPHILS % 66.4 % (36.0-66.0); PLATELET COUNT, AUTOMATED 274 10^3/uL (150-450); RED BLOOD COUNT 4.46 10^6/uL (4.00-5.40); WHITE BLOOD COUNT 9.1 10^3/uL (4.0-10.0)
[2021-07-28 13:05] LABS: ALBUMIN 3.4 GM/DL (3.2-5.2); ALT/SGPT 21 U/L (12-78); BILIRUBIN,TOTAL 0.5 MG/DL (0.2-1.0); BLOOD UREA NITROGEN 14 MG/DL (7-18); CALCIUM LEVEL 9.1 MG/DL (8.8-10.2); CARBON DIOXIDE LEVEL 29 MEQ/L (21-32); CHLORIDE LEVEL 106 MEQ/L (98-107); CREATININE FOR GFR 0.83 MG/DL (0.55-1.30); GLOMERULAR FILTRATION RATE > 60.0 (>39); GLUCOSE, FASTING 156 MG/DL (70-100); POTASSIUM SERUM 4.4 MEQ/L (3.5-5.1); SODIUM LEVEL 139 MEQ/L (136-145); TOTAL PROTEIN 6.8 GM/DL (6.4-8.2)
--- NOTE | 2021-07-28 15:41 | ECGEPIP ---
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 No prior ECG available for comparison at the time of interpretation. Electronically Signed on 07-28-2021 15:41:10 EST by Pedro Messina
== END ==
LOC: M EKG 12:07
PROVIDERS: ATTEND Family Medicine
DX: Z01.818 Encounter for other preprocedural examination (principal)

== ENCOUNTER → 2021-08-10 | Outpatient (CLI) | payer MEDICARE, OTHER ==
[~2021-08-10] MED LIST changes: +ASPI-551 PO; +CEPH500T PO; +CLIN150C17 PO; +COLA100C5 PO; +OMEP-173 PO; -OMEP-221 PO; +OMEP40CA5 PO; +OXYC-517 PO; +SENN18TA PO
== END ==
LOC: M LABSMTC 10:02
PROVIDERS: ATTEND Anesthesiology
DX: Z01.812 Encounter for preprocedural laboratory examination (principal)

== ENCOUNTER 2021-08-15 06:21 | Inpatient (IN) | payer MEDICARE, OTHER ==
[~2021-08-15] VITALS: Ht 152.4 cm; Wt 97.4 kg
[2021-08-15] VITALS (8 sets, daily range): BP systolic 108–141; BP diastolic 61–83; O2SAT 96
[~2021-08-15 06:21] MED LIST changes: +ACETAMINOPHEN 500 MG TAB PO ONE; -ASPI-551 PO; -CEPH500T PO; -CLIN150C17 PO; -COLA100C5 PO; +CelecoXIB 400 MG CAP PO ONE; +GABAPENTIN 300 MG CAP PO ONE; +LR 1,000 ML IV ONE; -OMEP-173 PO; +OMEP-221 PO; -OMEP40CA5 PO; +ONDANSETRON 4MG/2ML VIAL IV ONE; -OXYC-517 PO; -SENN18TA PO; +VANCOMYCIN HCL 1,000 MG, VIAL MATE ADAPTER 1 EACH in NS 250 ML IV ONE
--- OUTSIDE RECORDS SUMMARY | 2021-08-15 06:24 | CCD | Continuity of Care Document ---
Author Author Asia MURCIA MD Organization Unknown Address [address] , [facility] [place] [address] Phone [phone] Care Team Providers Care Field Radio Operator Name Role Phone Ute Harrison NP AUTM [phone] Brandyn Abraham M.D. AUTM [phone] Problems Active Problems Provider Date Essential hypertension Bernarda Fuentes D.O. Onset: 6 Social History Type Date Description Comments Sex Unknown ETOH Use Denies alcohol use Tobacco Use Start: Unknown Non Smoker Recreational Drug Use Denies Drug Use Tobacco Use Start: Unknown Patient has never smoked Smoking Status Reviewed: 07/26/21 Patient has never smoked Allergies and adverse reactions Active Allergies Criticality Reaction | Severity Comments Date Penicillin Unable to assess criticality HIVES,DIFF BREATHING,INC HR 03/07/2016 Penicillin V Unable to assess criticality Difficulty breathing, Hiv es 01/25/2021 Demerol Unable to assess criticality VOMITS,HALLUCINATES 03/07/2016 Demerol Unable to assess criticality hallucinations 01/25/2021 Talwin Nx Unable to assess criticality VOMIT 03/07/2016 Cefaclor Unable to assess criticality rash 01/25/2021 Ceclor Unable to assess criticality HIVES,VOMIT 03/07/2016 Hong Unable to assess criticality hallucinations 01/25/2021 IV Contrast Unable to assess criticality Hives 01/25/2021 Medications Active Medications SIG Qnty Indications Ordering Provide r Date Omeprazole 40mg Capsules DR once daily - take cremator on empty stomach - atleast 1/2 hour before breakfast. (taper off after 6 weeks) 30mario Gray M.D. Metformin HCL 500mg Tablets 1tab po bid Unknown Benazepril HCL 10mg Tablets Take One Tablet By Mouth Every Day Unknown Lovastatin 20mg Tablets Take One Tablet By Mouth Every Day With A Meal Unknown Hydrocodone-Acetaminophen 5-325mg Tablets Take One Tablet By Mouth Every 6 Hours Maximum Daily Dose 4 Tablets Unknown Onetouch Delica Plus Lancets Extra Fine 33G Plus 33G Misc Use as Directed Once Daily Unknown Iron (Ferrous Sulfate) 325(65Fe) mg Tablets one tablet daily after the meals. Unknown Immunizations Description No Information Available Vital Signs Date Vital Result Comment 07/26/2021 8:52am Body Temperature 97.1 F Height 60 inches 5'0" Weight 215.75 lb BMI (Body Mass Index) 42.1 kg/m2 [place] Body Weight 100 lb Weight 97.864 kg BSA (Body Surface Area) 1.93 m2 02/22/2021 11:26am Body Temperature 97.9 F Results Description No Information Available Procedures Date Code Description Status 07/26/2021 90250 Office/Outpatient Established Mo d MDM 30-39 Min Completed 02/22/2021 42708 Office/Outpatient Established Mo d MDM 30-39 Min Completed Medical Devices Description No Information Available Encounters Type Date Location Provider Dx Diagnosis Office Visit 07/26/2021 9:00a [facility] [place] Pedro Murcia MD M17.0 Bilateral primary osteoarthritis of knee M70.61 Trochanteric bursitis, right hip Office Visit 02/22/2021 11:30a [facility] [place] Pedro Murcia MD M17.0 Bilateral primary osteoarthritis of knee M70.61 Trochanteric bursitis, right hip Assessments Date Code Description Provider 07/26/2021 M17.0 Bilateral osteoarthritis of knee s Pedro Murcia MD 07/26/2021 M70.61 Trochanteric bursitis of right h ip Pedro Murcia MD 02/22/2021 M17.0 Bilateral osteoarthritis of knee s Pedro Murcia MD 02/22/2021 M70.61 Trochanteric bursitis of right h ip Pedro Murcia MD Plan of Treatment Future Appointment(s):* 08/15/2021 7:30 am - Pedro Murcia MD at [facility] 07/26/2021 - Pedro Murcia MD* M17.0 Bilateral osteoarthritis of knees* Comments:* The patient's right knee is the most bothersome at this time. She is mobilizing with a crutch. Her right hip bursal type pain has been bothering her of late but is not as severe as been in the past. This close to surgical intervention I would not recommend a bursal cortisone injection. She did sign consent for the right total knee arthroplasty. This was after a brief review of the risks and benefits discussed at her previous consenting appointment.I did explain to the patient that a total joint replacement procedure is an elective procedure. Candidacy for the procedure is based on imaging and the patient's symptoms and whether or not the patient would like to proceed with the surgery. The procedure is performed for pain relief only. Any other gains are secondary. The risks of the procedure include but are not limited to infection, periprosthetic fracture, damage to local neurovascular or soft tissue structures, deep vein thrombosis or pulmonary emboli, and need for revision surgery. Anesthetic risks will be discussed with the anesthesiologist. These include but are not limited to, heart attack, stroke and .Total knee arthroplasty patients typically fall into 3 categories of outcomes. Approximately 85% of patients are happy with the results and would have the surgery performed, again without any concerns. Approximately 10-15% of patients are happy with the results and would have the surgery performed. Again, but may have some persistent aches and pains or other symptoms. These patients typically have had a fracture of bone around the joint or the F had an open surgical procedure or infection around the joint. Approximately 1% of patients have the joint replacement procedure performed and did not experience any alleviation or sometimes worsening of her symptoms. If there is no identifiable cause of their persistent or worsening symptoms, then there is nothing that can be done. If there is no obvious cause of pain or discomfort, it can take a prolonged period of time in determining cause, if any, is the early period for a total joint replacement is approximately 1 year whereas the early period for most surgical intervention to 6 weeks.The patient is aware that the surgery will not be performed with the assistance of the Bioclones robot as the metal allergy components are not compatible.She has signed consent for the procedure. She is booked for August 15. * Follow up:* Surgery bone * M70.61 Trochanteric bursitis of right hip Functional Status Functional Condition Comment Date Status Axillary crutches are used to ambulate left side Active Mental Status Description No Information Available Referrals Refer to Reason for Referral Status Appt Date Kenny Hwang M.D. Patient candidate for total knee replacement. Mentioned allergy to nickel/metal Total knee components are cobalt and chromium and titanium. ?Metal allergy testing or is there a lab in [facility] that does m aterials reactivity/sensitivities that identifies which prosthetic components are suitable for candidates with metal allergies? Closed 08/2021 [facility] [address], [address] [place], [place] [address] [phone]
--- OUTSIDE RECORDS SUMMARY | 2021-08-15 06:24 | CCD | Continuity of Care Document ---
Author Asia Titus M.D. Organization Unknown Address [address] [place] [address] Phone [phone] Care Team Providers Care Photo Equipment Technician Name Role Phone Pedro Villareal MD AUTM [phone] Brandyn Abraham MD AUTM [phone] Problems Active Problems Provider Date Essential hypertension Kenny Hwang M.D. Onset: 04/02 Social History Type Date Description Comments Sex Unknown Tobacco Use Reviewed: 05/31/21 Patient has never smoked Smoking Status Reviewed: 05/31/21 Patient has never smoked Allergies, Adverse Reactions, Alerts Active Allergies Criticality Reaction | Severity Comments Date Penicillin V Unable to assess criticality Difficulty breathing, Hiv es 04/13/2021 Talwin Unable to assess criticality Hallucinations 04/13/2021 Cefaclor Unable to assess criticality Hives 04/13/2021 Contrast Dye Unable to assess criticality Hives 04/13/2021 Medications Active Medications SIG Qnty Indications Ordering Provide r Date Penicillin V Potassium 250mg/5ML Solution Rec 10 milliliters twice a day x 2 days for in office oral chall enge 100ml T36.0x5A Kenny Hwang M.D. 04/13/2021 Hydrocodone-Acetaminophen 5-325mg Tablets Take One Tablet By Mouth Every 6 Hours Maximum Daily Dose Four Tablets Unknown Benazepril HCL 10mg Tablets Take One Tablet By Mouth Every Day Unknown Lovastatin 20mg Tablets Take One Tablet By Mouth Every Day With A Meal Unknown 00/0 Metformin HCL 500mg Tablets Take One Tablet By Mouth Twice A Day With Food Unknown Omeprazole 40mg Capsules DR Take One Capsule By Mouth Every Day Unknown 0000 /0000 Immunizations Description No Information Available Vital Signs Date Vital Result Comment 05/31/2021 2:44pm Weight 216.00 lb Height 58.75 inches 4'10.75" Heart Rate 74 /min Respiratory Rate 16 /min BP Systolic 162 mmHg BP Diastolic 90 mmHg BMI (Body Mass Index) 44.0 kg/m2 05/29/2021 2:25pm Weight 216.50 lb Height 58.75 inches 4'10.75" Heart Rate 81 /min Respiratory Rate 18 /min BP Systolic 158 mmHg BP Diastolic 84 mmHg BMI (Body Mass Index) 44.1 kg/m2 Results Description No Information Available Procedures Date Code Description Status 05/29/2021 04371 Office/Outpatient Established SF MDM 10-19 Min Completed 05/29/2021 09265 Allergy Test, Patch Or Applicati on Completed 04/13/2021 82858 Office/Outpatient New Moderate M DM 45-59 Minutes Completed 04/13/2021 34713 Office/Outpatient New Low MDM 30 -44 Minutes Completed 04/13/2021 47639 Allergy Testing Any Combination Of Percutaneous W/Drugs Completed Medical Devices Description No Information Available Encounters Type Date Location Provider Dx Diagnosis Office Visit 05/29/2021 2:30p Main Office Kenny Hwang M.D. L23.0 Allergic contact dermatitis due to metals Assessments Description No Information Available Plan of Treatment Future Appointment(s):* 06/02/2021 1:45 pm - Kenny Hwang M.D. at Main Office Functional Status Description No Information Available Mental Status Description No Information Available Referrals Description No Information Available
--- OUTSIDE RECORDS SUMMARY | 2021-08-15 06:24 | CCD | Continuity of Care Document ---
Author Asia Titus M.D. Organization Unknown Address [address], [place] [address] Phone [phone] Care Team Providers Care Communications Field Technician Name Role Phone Pedro Villareal MD AUTM [phone] Brandyn Abraham MD AUTM [phone] Problems Active Problems Provider Date Essential hypertension Kenny Hwang M.D. Onset: 04/02 Social History Type Date Description Comments Sex Unknown Tobacco Use Reviewed: 06/02/21 Patient has never smoked Smoking Status Reviewed: 06/02/21 Patient has never smoked Allergies and adverse [...] Mouth Every Day With A Meal Unknown Metformin HCL 500mg Tablets Take One Tablet By Mouth Twice A Day With Food Unknown Omeprazole 40mg Capsules DR Take One Capsule By Mouth Every Day Unknown 0000 Immunizations Description No Information Available Vital Signs Date Vital Result Comment 06/02/2021 1:36pm Weight 217.00 lb Heart Rate 73 /min Respiratory Rate 18 /min BP Systolic 155 mmHg BP Diastolic 88 mmHg 05/31/2021 2:44pm Weight 216.00 lb Height 58.75 inches 4'10.75" Heart Rate 74 /min Respiratory Rate 16 /min BP Systolic 162 mmHg BP Diastolic 90 mmHg BMI (Body Mass Index) 44.0 kg/m2 Results Description No Information Available Procedures Date Code Description Status 06/02/2021 21446 Office/Outpatient Established Lo w MDM 20-29 Min Completed 05/31/2021 66768 Office/Outpatient Established SF MDM 10-19 Min Completed 05/29/2021 49647 Office/Outpatient Established SF MDM 10-19 Min Completed 05/29/2021 99028 Allergy Test, Patch Or Applicati on Completed 04/13/2021 85170 Office/Outpatient New Moderate M DM 45-59 Minutes Completed 04/13/2021 39284 Office/Outpatient New Low MDM 30 -44 Minutes Completed 04/13/2021 14676 Allergy Testing Any Combination Of Percutaneous W/Drugs Completed Medical Devices Description No Information Available Encounters Type Date Location Provider Dx Diagnosis Office Visit 05/31/2021 2:45p Main Office Kenny Hwang M.D. L23.0 Allergic contact dermatitis due to metals Assessments Date Code Description Provider 06/02/2021 L23.0 Allergic contact dermatitis due to metals Kenny Hwang M.D. 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 * Recommendations:* The most common metallic sensitizers include nickel, cobalt and chromium and Mrs. Santamaria tested positive to Nickel. Orthopedic grades of stainless steel and cobalt-chromium alloys both include these materials while titanium and titanium alloys do not. Therefore use of titanium alloys would be suggested during any future surgical procedures and as a prosthetics. * All * Follow up:* As needed. Functional Status Description No Information Available Mental Status Description No Information Available Referrals Description No Information Available
--- OUTSIDE RECORDS SUMMARY | 2021-08-15 06:24 | CCD | Continuity of Care Document ---
Author Asia Titus M.D. Organization Unknown Address [address], [address], [place] [address] Phone [phone] Care Team Providers Care Physical Ther Name Role Phone Pedro Villareal MD AUTM [phone] Brandyn Abraham MD AUTM [phone] Problems Active Problems Provider Date Essential hypertension Kenny Hwang M.D. Onset: 04/02 Social History Type Date Description Comments Sex Unknown Tobacco Use Reviewed: 06/02/21 Patient has never smoked Smoking Status Reviewed: 06/02/21 Patient has never smoked Allergies, Adverse Reactions, [...] Mouth Every Day With A Meal Unknown 000 Metformin HCL 500mg Tablets Take One Tablet By Mouth Twice A Day With Food Unknown Omeprazole 40mg Capsules DR Take One Capsule By Mouth Every Day Unknown Immunizations Description No Information Available Vital [...] Information Available Procedures Date Code Description Status 05/31/2021 23667 Office/Outpatient Established SF MDM 10-19 Min Completed 05/29/2021 11063 Office/Outpatient Established SF MDM 10-19 Min Completed 05/29/2021 18911 Allergy Test, Patch Or Applicati on Completed 04/13/2021 85109 Office/Outpatient New Moderate M DM 45-59 Minutes Completed 04/13/2021 19777 Office/Outpatient New Low MDM 30 -44 Minutes Completed 04/13/2021 81098 Allergy Testing Any Combination Of Percutaneous W/Drugs Completed Medical Devices Description No Information Available Encounters Type Date Location Provider Dx Diagnosis Office Visit 05/31/2021 2:45p Main Office Kenny Hwang M.D. L23.0 Allergic contact dermatitis due to metals Assessments Date Code Description Provider 06/02/2021 L23.0 Allergic contact dermatitis due to metals Kenny Hwang M.D. Plan of Treatment No Information Available Functional Status Description No Information Available Mental Status Description No Information Available Referrals Description No Information Available
--- OUTSIDE RECORDS SUMMARY | 2021-08-15 06:24 | CCD | Continuity of Care Document ---
Author Asia Titus M.D. Organization Unknown Address [address], [address], [place] [address] Phone [phone] Care Team Providers Care Ceo And Founder Name Role Phone Pedro Villareal MD AUTM [phone] Brandyn Abraham MD AUTM [phone] Problems Active Problems Provider Date Essential hypertension Kenny Hwang M.D. Onset: 04/02 Social History Type Date Description Comments Sex Unknown Tobacco Use Reviewed: 05/29/21 Patient has never smoked Smoking Status Reviewed: 05/29/21 Patient has never smoked Allergies, Adverse Reactions, [...] One Capsule By Mouth Every Day Unknown 00/00 /0000 Immunizations Description No Information Available Vital Signs Date Vital Result Comment 05/29/2021 2:25pm Weight 216.50 lb Height 58.75 inches 4'10.75" Heart Rate 81 /min Respiratory Rate 18 /min BP Systolic 158 mmHg BP Diastolic 84 mmHg BMI (Body Mass Index) 44.1 kg/m2 04/13/2021 10:15am Weight 216.00 lb Height 58.75 inches 4'10.75" Heart Rate 70 /min Respiratory Rate 18 /min BP Systolic 160 mmHg BP Diastolic 88 mmHg BMI (Body Mass Index) 44.0 kg/m2 Results Description No Information Available Procedures Date Code Description Status 05/29/2021 92268 Office/Outpatient Established SF MDM 10-19 Min Completed 05/29/2021 31984 Allergy Test, Patch Or Applicati on Completed 04/13/2021 24516 Office/Outpatient New Moderate M DM 45-59 Minutes Completed 04/13/2021 69491 Office/Outpatient New Low MDM 30 -44 Minutes Completed 04/13/2021 08249 Allergy Testing Any Combination Of Percutaneous W/Drugs Completed Medical Devices Description No Information Available Encounters Type Date Location Provider Dx Diagnosis Office Visit 05/29/2021 2:30p Main Office Kenny Hwang M.D. L23.0 Allergic contact dermatitis due to metals Assessments Date Code Description Provider 05/29/2021 L23.0 Allergic contact dermatitis due to metals Kenny Hwang M.D. Plan of Treatment Future Appointment(s):* 05/31/2021 2:45 pm - Kenny Hwang M.D. at Main Office * 06/02/2021 1:45 pm - Kenny Hwang M.D. at Main Office 05/29/2021 - Kenny Hwang M.D.* L23.0 Allergic contact dermatitis due to metals* Recommendations:* The most common metallic sensitizers include nickel, cobalt and chromium. Orthopedic grades of stainless steel and cobalt-chromium alloys both include these materials while titanium and titanium alloys do not. Therefore if her patch reconfirms allergy to nickel use of titanium alloys will be necessary during any future surgical procedures and as a prosthetics. * All * Follow up:* 2 days for initial patch read. Functional Status Description No Information Available Mental Status Description No Information Available Referrals Description No Information Available
--- OUTSIDE RECORDS SUMMARY | 2021-08-15 06:24 | CCD | Continuity of Care Document ---
Author Asia Titus M.D. Organization Unknown Address [address], [address], [place] [address] Phone [phone] Care Team Providers Care Steel Analyst Name Role Phone Pedro Villareal MD AUTM [phone] Brandyn Abraham MD AUTM [phone] Problems Active Problems Provider Date Essential hypertension [...] Available Procedures Date Code Description Status 05/31/2021 41544 Office/Outpatient Established SF MDM 10-19 Min Completed 05/29/2021 04878 Office/Outpatient Established SF MDM 10-19 Min Completed 05/29/2021 16256 Allergy Test, Patch Or Applicati on Completed 04/13/2021 22690 Office/Outpatient New Moderate M DM 45-59 Minutes Completed 04/13/2021 79593 Office/Outpatient New Low MDM 30 -44 Minutes Completed 04/13/2021 47076 Allergy Testing Any Combination Of Percutaneous W/Drugs Completed Medical Devices Description No Information Available Encounters Type Date Location Provider Dx Diagnosis Office Visit 05/31/2021 2:45p Main Office Kenny Hwang M.D. L23.0 Allergic contact dermatitis due to metals Assessments Date Code Description Provider 05/31/2021 L23.0 Allergic contact dermatitis due to metals Kenny Hwang M.D. Plan of Treatment Future Appointment(s):* 06/02/2021 1:45 pm - Kenny Hwang M.D. at Main Office 05/31/2021 - Kenny Hwang M.D.* L23.0 Allergic contact dermatitis due to metals* Comments:* 3+ to #28 Gold Sodium Thiosulfate on early reading. * All * Follow up:* 2 days for final read. Further instruction will follow after final results are known. Functional Status Description No Information Available Mental Status Description No Information Available Referrals Description No Information Available
--- OUTSIDE RECORDS SUMMARY | 2021-08-15 06:24 | CCD | Continuity of Care Document ---
Author Author Asia MURCIA MD Organization Unknown Address [address] , [facility] [place] [address] Phone [phone] Care Team Providers Care Assembler Fishing Floats Name Role Phone Ute Harrison NP AUTM [phone] Brandyn Abraham M.D. 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 - atleast 1/2 hour [...] lb BMI (Body Mass Index) 42.1 kg/m2 [place] Body Weight 100 lb Weight 97.864 kg BSA (Body Surface Area) 1.93 m2 02/22/2021 11:26am Body Temperature 97.9 F Results Description No Information Available Procedures Date Code Description Status 02/22/2021 23378 Office/Outpatient Established Mo d MDM 30-39 Min Completed 01/25/2021 29701 Office/Outpatient New Moderate M DM 45-59 Minutes Completed Medical Devices Description No Information Available Encounters Type Date Location Provider Dx Diagnosis Office Visit 02/22/2021 11:30a [facility] Pedro Murcia MD M17.0 Bilateral primary osteoarthritis of knee M70.61 Trochanteric bursitis, right hip Office Visit 01/25/2021 10:30a [facility] Pedro Murcia MD M17.0 Bilateral primary osteoarthritis of knee M70.61 Trochanteric bursitis, right hip Assessments Date Code Description Provider 02/22/2021 M17.0 Bilateral osteoarthritis of knee s Pedro Murcia MD 02/22/2021 M70.61 Trochanteric bursitis of right h ip Pedro Murcia MD 01/25/2021 M17.0 Bilateral osteoarthritis of knee s Pedro Murcia MD 01/25/2021 M70.61 Trochanteric bursitis of right h ip Pedro Murcia MD Plan of Treatment Future Appointment(s):* 08/15/2021 7:30 am - Pedro Murcia MD at [facility] 02/22/2021 - Pedro Murcia MD* M17.0 Bilateral osteoarthritis of knees* Comments:* Patient complains of right greater than left knee pain. We had a long discussion about options and she has asked about a right total knee arthroplasty. Of note, she was advised that she has had an increased risk of infection due to her diabetes. There is also concern with regards to her possible metal allergy. I did explain that the [employer] robotic assisted surgery does not utilize jigs which created Metal Wear debris with the sawblade so there is less likelihood of this occurring. I will have to see if there is a materials reactivity testing lab available in [facility] as the one that I previously used is not available in [facility] for services.I did explain to the patient that a [...] fracture, damage to local neurovascular or soft t issue structures, deep vein thrombosis or pulmonary emboli, [...] patient is aware that the surgery will be planned to be completed with the assistance [employer] robotic surgical program.The patient has signed consent for the procedure. I have provided her with Hibiclens soap to wash from the waist down for 5 days prior to surgery * Referral:* Kenny Hwang M.D., Allergy & Immunology/Algy * Follow up:* Booking right total knee arthroplasty * M70.61 Trochanteric bursitis of right hip [...] testing or is there a lab in [facility] that does m aterials reactivity/sensitivities that identifies which prosthetic components are suitable for candidates with metal allergies? Closed 08/2021 [facility] [address], [address] [place], [place] [address] [phone]
--- OUTSIDE RECORDS SUMMARY | 2021-08-15 06:24 | CCD | Continuity of Care Document ---
Author Asia Titus M.D. Organization Unknown Address [address], [address], [place] [address] Phone [phone] Care Team Providers Care Chemic Mangler Name Role Phone Pedro Villareal MD AUTM [phone] Brandyn Abraham MD AUTM [phone] Problems Active Problems Provider Date Essential hypertension [...] Available Procedures Date Code Description Status 05/29/2021 69220 Office/Outpatient Established SF MDM 10-19 Min Completed 05/29/2021 02492 Allergy Test, Patch Or Applicati on Completed 04/13/2021 70963 Office/Outpatient New Moderate M DM 45-59 Minutes Completed 04/13/2021 46711 Office/Outpatient New Low MDM 30 -44 Minutes Completed 04/13/2021 47806 Allergy Testing Any Combination Of Percutaneous W/Drugs [...]
--- OUTSIDE RECORDS SUMMARY | 2021-08-15 06:25 | CCD ---
Author Author [facility] Organization [facility] Address Unknown Phone Unavailable Care Team Providers Care Ortho/Prosthetic Aide Name Role Phone MCELHERAN, JOSE PA Unavailable Unavailable MCELHERAN, JOSE PA Unavailable Unavailable MCELHERAN, JOSE PA Unavailable Unavailable MCELHERAN, JOSE PA Unavailable Unavailable MCELHERAN, JOSE PA Unavailable Unavailable MCELHERAN, JOSE PA Unavailable Unavailable MCELHERAN, JOSE PA Unavailable Unavailable MCELHERAN, JOSE PA Unavailable Unavailable MCELHERAN, JOSE PA Unavailable Unavailable MCELHERAN, JOSE PA Unavailable Unavailable MCELHERAN, JOSE PA Unavailable Unavailable MCELHERAN, JOSE PA Unavailable Unavailable MCELHERAN, JOSE PA Unavailable Unavailable MCELHERAN, JOSE PA Unavailable Unavailable MCELHERAN, JOSE PA Unavailable Unavailable MCELHERAN, JOSE PA Unavailable Unavailable MCELAN, JOSE PA Unavailable Unavailable MCELAN, JOSE PA Unavailable Unavailable [facility], JOSE PA Unavailable Unavailable MCELHERAN, JOSE PA Unavailable Unavailable MCELHERAN, JOSE PA Unavailable Unavailable MCELHERAN, JOSE PA Unavailable Unavailable MCELHERAN, JOSE PA Unavailable Unavailable MCELHERAN, JOSE PA Unavailable Unavailable MCELAN, JOSE PA Unavailable Unavailable MCELHERAN, JOSE PA Unavailable Unavailable MCELHERAN, JOSE PA Unavailable Unavailable MCELHERAN, JOSE PA Unavailable Unavailable MCELHERAN, JOSE PA Unavailable Unavailable MCELHERAN, JOSE PA Unavailable Unavailable MCELHERAN, JOSE PA Unavailable Unavailable MCELHERAN, JOSE PA Unavailable Unavailable MCELHERAN, JOSE PA Unavailable Unavailable MCELHERAN, JOSE PA Unavailable Unavailable MCELHERAN, JOSE PA Unavailable Unavailable MCELHERAN, JOSE PA Unavailable Unavailable MCELHERAN, JOSE PA Unavailable Unavailable MCELHERAN, JOSE PA Unavailable Unavailable MCELHERAN, JOSE PA Unavailable Unavailable MCELHERAN, JOSE PA Unavailable Unavailable MCELHERAN, JOSE PA Unavailable Unavailable MCELHERAN, JOSE PA Unavailable Unavailable MCELHERAN, JOSE PA Unavailable Unavailable MCELHERAN, JOSE PA Unavailable Unavailable MCELHERAN, JOSE PA Unavailable Unavailable MCELHERAN, JOSE PA Unavailable Unavailable MCELHERAN, JOSE PA Unavailable Unavailable MCELHERAN, JOSE PA Unavailable Unavailable MCELHERAN, JOSE PA Unavailable Unavailable MCELHERAN, JOSE PA Unavailable Unavailable MCELHERAN, JOSE PA Unavailable Unavailable MCELHERAN, JOSE PA Unavailable Unavailable MCELHERAN, JOSE PA Unavailable Unavailable MCELHERAN, JOSE PA Unavailable Unavailable MCELHERAN, JOSE PA Unavailable Unavailable MCELHERAN, JOSE PA Unavailable Unavailable MCELHERAN, JOSE PA Unavailable Unavailable MCELHERAN, JOSE PA Unavailable Unavailable CHROSTJOYCE CANDELARIO MD Unavailable Unavailable CHROSTOWSKIJOYCE MD Unavailable Unavailable CHROSTJOYCE CANDELARIO MD Unavailable Unavailable CHROSTOWSKIJOYCE MD Unavailable Unavailable CHROSTOWSKIJOYCE MD Unavailable Unavailable CHROSTOWSKIJOYCE MD Unavailable Unavailable CHROSTOWSKIJOYCE MD Unavailable Unavailable CHROSTOWSKIJOYCE MD Unavailable Unavailable CHROSTOWSKIJOYCE MD Unavailable Unavailable CHROSTOWSKIJOYCE MD Unavailable Unavailable CHROSTOWSKIJOYCE MD Unavailable Unavailable CHROSTOWSKIJOYCE MD Unavailable Unavailable CHROSTOWSKIJOYCE MD Unavailable Unavailable CHROSTOWSKIJOYCE MD Unavailable Unavailable CHROSTOWSKIJOYCE MD Unavailable Unavailable CHROSTOWSKIJOYCE MD Unavailable Unavailable CHROSTOWSKIJOYCE MD Unavailable Unavailable CHROSTOWSKIJOYCE MD Unavailable Unavailable CHROSTOWSKIJOYCE MD Unavailable Unavailable CHROSTOWSKIJOYCE MD Unavailable Unavailable CHROSTOWSKIJOYCE MD Unavailable Unavailable CHROSTOWSKIJOYCE MD Unavailable Unavailable CHROSTOWSKIJOYCE MD Unavailable Unavailable CHROSTOWSKI, JOYCE MD Unavailable Unavailable CHROSTOWSKI, JOYCE MD Unavailable Unavailable JOYCE FLOR MD Unavailable Unavailable JOYCE FLOR MD Unavailable Unavailable JOYCE FLOR MD Unavailable Unavailable JOYCE FLOR MD Unavailable Unavailable JOYCE FLOR MD Unavailable Unavailable JOYCE FLOR MD Unavailable Unavailable JOYCE FLOR MD Unavailable Unavailable JOYCE LFOR MD Unavailable Unavailable JOYCE FLOR MD Unavailable Unavailable JOYCE FLOR MD Unavailable Unavailable JOYCE FLOR MD Unavailable Unavailable JOYCE FLOR MD Unavailable Unavailable JOYCE FLOR MD Unavailable Unavailable JOYCE FLOR MD Unavailable Unavailable Feola, T Deanne PA Unavailable Unavailable Feola, T Deanne PA Unavailable Unavailable Feola, T Deanne PA Unavailable Unavailable Feola, T Deanne PA Unavailable Unavailable Feola, T Deanne PA Unavailable Unavailable Feola, T Deanne PA Unavailable Unavailable Feola, T Deanne PA Unavailable Unavailable Feola, T Deanne PA Unavailable Unavailable Feola, T Deanne PA Unavailable Unavailable Feola, T Deanne PA Unavailable Unavailable Feola, T Deanne PA Unavailable Unavailable Feola, T Deanne PA Unavailable Unavailable Feola, T Deanne PA Unavailable Unavailable Feola, T Deanne PA Unavailable Unavailable Feola, T Deanne PA Unavailable Unavailable Feola, T Deanne PA Unavailable Unavailable Feola, T Deanne PA Unavailable Unavailable Feola, T Deanne PA Unavailable Unavailable Feola, T Deanne PA Unavailable Unavailable Feola, T Deanne PA Unavailable Unavailable Feola, T Deanne PA Unavailable Unavailable Feola, T Deanne PA Unavailable Unavailable Feola, T Deanne PA Unavailable Unavailable Feola, T Deanne PA Unavailable Unavailable Feola, T Deanne PA Unavailable Unavailable Feola, T Deanne PA Unavailable Unavailable Feola, T Deanne PA Unavailable Unavailable Feola, T Deanne PA Unavailable Unavailable Feola, T Deanne PA Unavailable Unavailable Feola, T Deanne PA Unavailable Unavailable Feola, T Deanne PA Unavailable Unavailable Feola, T Deanne PA Unavailable Unavailable Feola, T Deanne PA Unavailable Unavailable Feola, T Deanne PA Unavailable Unavailable Feola, T Deanne PA Unavailable Unavailable Feola, T Deanne PA Unavailable Unavailable Feola, T Deanne PA Unavailable Unavailable Feola, T Deanne PA Unavailable Unavailable Feola, T Deanne PA Unavailable Unavailable Feola, T Deanne PA Unavailable Unavailable Feola, T Deanne PA Unavailable Unavailable EMERTON, A SUSY MD Unavailable Unavailable EMERTON, A SUSY MD Unavailable Unavailable EMERTON, A SUSY MD Unavailable Unavailable EMERTON, A SUSY MD Unavailable Unavailable EMERTON, A SUSY MD Unavailable Unavailable EMERTON, A SUSY MD Unavailable Unavailable EMERTON, A SUSY MD Unavailable Unavailable EMERTON, A SUSY MD Unavailable Unavailable EMERTON, A SUSY MD Unavailable Unavailable EMERTON, A SUSY MD Unavailable Unavailable EMERTON, A SUSY MD Unavailable Unavailable EMERTON, A SUSY MD Unavailable Unavailable EMERTON, A SUSY MD Unavailable Unavailable EMERTON, A SUSY MD Unavailable Unavailable EMERTON, A SUSY MD Unavailable Unavailable EMERTON, A SUSY MD Unavailable Unavailable EMERTON, A SUSY MD Unavailable Unavailable EMERTON, A SUSY MD Unavailable Unavailable EMERTON, A SUSY MD Unavailable Unavailable EMERTON, A SUSY MD Unavailable Unavailable EMERTON, A SUSY MD Unavailable Unavailable EMERTON, A SUSY MD Unavailable Unavailable EMERTON, A SUSY MD Unavailable Unavailable EMERTON, A SUSY MD Unavailable Unavailable EMERTON, A SUSY MD Unavailable Unavailable EMERTON, A SUSY MD Unavailable Unavailable EMERTON, A SUSY MD Unavailable Unavailable EMERTON, A SUSY MD Unavailable Unavailable EMERTON, A SUSY MD Unavailable Unavailable EMERTON, A SUSY MD Unavailable Unavailable EMERTON, A SUSY MD Unavailable Unavailable EMERTON, A SUSY MD Unavailable Unavailable EMERTON, A SUSY MD Unavailable Unavailable EMERTON, A SUSY MD Unavailable Unavailable EMERTON, A SUSY MD Unavailable Unavailable EMERTON, A SUSY MD Unavailable Unavailable EMERTON, A SUSY MD Unavailable Unavailable EMERTON, A SUSY MD Unavailable Unavailable EMERTON, A SUSY MD Unavailable Unavailable EMERTON, A SUSY MD Unavailable Unavailable EMERTON, A SUSY MD Unavailable Unavailable EMERTON, A SUSY MD Unavailable Unavailable EMERTON, A SUSY MD Unavailable Unavailable EMERTON, A SUSY MD Unavailable Unavailable EMERTON, A SUSY MD Unavailable Unavailable EMERTON, A SUSY MD Unavailable Unavailable EMERTON, A SUSY MD Unavailable Unavailable EMERTON, A SUSY MD Unavailable Unavailable EMERTON, A SUSY MD Unavailable Unavailable EMERTON, A SUSY MD Unavailable Unavailable EMERTON, A SUSY MD Unavailable Unavailable EMERTON, A SUSY MD Unavailable Unavailable EMERTON, A SUSY MD Unavailable Unavailable EMERTON, A SUSY MD Unavailable Unavailable EMERTON, Rachana JAIN MD Unavailable Unavailable EMERTON, A SUSY SEVERINO Unavailable Unavailable EMERTON, A SUSY SEVERINO Unavailable Unavailable EMERTON, A SUSY SEVERINO Unavailable Unavailable EMERTON, A SUSY SEVERINO Unavailable Unavailable EMERTON, A SUSY SEVERINO Unavailable Unavailable EMERTON, A SUSYHe SEVERINO Unavailable Unavailable EMERTON, A SUSY SEVERINO Unavailable Unavailable EMERTON, A SUSYHe SEVERINO Unavailable Unavailable EMERTON, A SUSYHe SEVERINO Unavailable Unavailable EMERTON, A SUSYHe SEVERINO Unavailable Unavailable EMERTON, A SUSYHe SEVERINO Unavailable Unavailable EMERTON, A SUSYHe SEVERINO Unavailable Unavailable EMERTON, A SUSYHe SEVERINO Unavailable Unavailable EMERTON, A SUSY SEVERINO Unavailable Unavailable EMERTON, A SUSY SEVERINO Unavailable Unavailable EMERTON, A SUSY SEVERINO Unavailable Unavailable EMERTON, A SUSY SEVERINO Unavailable Unavailable EMERTON, A SUSY SEVERINO Unavailable Unavailable EMERTON, A SUSY SEVERINO Unavailable Unavailable EMERTON, A SUSY SEVERINO Unavailable Unavailable EMERTON, Rachana JAIN MD Unavailable Unavailable EMERTON, Rachana JAIN MD Unavailable Unavailable EMERTON, Rachana JAIN MD Unavailable Unavailable Villareal, Pedro SEVERINO Unavailable Unavailable Villareal, Pedro SEVERINO Unavailable Unavailable Villareal, Pedro SEVERINO Unavailable Unavailable Villareal, Pedro SEVERINO Unavailable Unavailable Villareal, Pedro SEVERINO Unavailable Unavailable Villareal, Pedro SEVERINO Unavailable Unavailable Villareal, Pedro SEVERINO Unavailable Unavailable Villareal, Pedro SEVERINO Unavailable Unavailable Villareal, Pedro SEVERINO Unavailable Unavailable Villareal, Pedro SEVERINO Unavailable Unavailable Villareal, Pedro SEVERINO Unavailable Unavailable Villareal, Pedro SEVERINO Unavailable Unavailable Joaquin SEVERINO, M Jesus Unavailable Joaquin SEVERINO, M Jesus Unavailable Joaquin SEVERINO, M Jesus Unavailable Joaquin SEVERINO, M Jesus Unavailable Joaquin SEVERINO, M Jesus Unavailable Joaquin SEVERINO, M Jesus Unavailable Joaquin SEVERINO, M Jesus Unavailable Joaquin SEVERINO, M Jesus Unavailable Joaquin SEVERINO, M Jesus Unavailable Joaquin SEVERINO, M Jesus Unavailable Joaquin SEVERINO, M Jesus Unavailable Joaquin SEVERINO, M Jesus Unavailable Orio MD, M Jesus Unavailable Orio MD, M Jesus Unavailable Orio MD, M Jesus Unavailable Orio MD, M Jesus Unavailable Orio MD, M Jesus Unavailable Orio MD, M Jesus Unavailable Orio MD, M Jesus Unavailable Orio MD, M Jesus Unavailable Orio MD, M Jesus Unavailable Orio MD, M Jesus Unavailable Orio MD, M Jesus Unavailable Orio MD, M Jesus Unavailable Orio MD, M Jesus Unavailable Orio MD, M Jesus Unavailable Orio MD, M Jesus Unavailable Orio MD, M Jesus Unavailable Orio MD, M Jesus Unavailable Orio MD, M Jesus Unavailable Orio MD, M Jesus Unavailable Orio MD, M Jesus Unavailable Orio MD, M Jesus Unavailable Orio MD, M Jesus Unavailable Orio MD, M Jesus Unavailable Orio MD, M Jesus Unavailable Orio MD, M Jesus Unavailable Orio MD, M Jesus Unavailable THAO, Rachana JAIN MD Unavailable Unavailable EMERTON, Rachana JAIN MD Unavailable Unavailable EMERTON, Rachana JAIN MD Unavailable Unavailable EMERTON, Rachana JAIN MD Unavailable Unavailable EMERTON, Rachana JAIN MD Unavailable Unavailable EMERTON, Rachana JAIN MD Unavailable Unavailable EMERTON, A SUSY MD Unavailable Unavailable EMERTON, A SUSY MD Unavailable Unavailable EMERTON, A SUSY MD Unavailable Unavailable EMERTON, A SUSY MD Unavailable Unavailable EMERTON, A SUSY MD Unavailable Unavailable EMERTON, A SUSY MD Unavailable Unavailable EMERTON, A SUSY MD Unavailable Unavailable EMERTON, A SUSY MD Unavailable Unavailable EMERTON, A SUSY MD Unavailable Unavailable EMERTON, A SUSY MD Unavailable Unavailable EMERTON, A SUSY MD Unavailable Unavailable EMERTON, A SUSY MD Unavailable Unavailable EMERTON, A SUSY MD Unavailable Unavailable EMERTON, A SUSY MD Unavailable Unavailable EMERTON, A SUSY MD Unavailable Unavailable EMERTON, A SUSY MD Unavailable Unavailable EMERTON, A SUSY MD Unavailable Unavailable EMERTON, A SUSY MD Unavailable Unavailable EMERTON, A SUSY MD Unavailable Unavailable EMERTON, A SUSY MD Unavailable Unavailable EMERTON, A SUSY MD Unavailable Unavailable EMERTON, A SUSY MD Unavailable Unavailable EMERTON, A SUSY MD Unavailable Unavailable EMERTON, A SUSY MD Unavailable Unavailable EMERTON, A SUSY MD Unavailable Unavailable EMERTON, A SUSY MD Unavailable Unavailable EMERTON, A SUSY MD Unavailable Unavailable EMERTON, A SUSY MD Unavailable Unavailable EMERTON, A SUSY MD Unavailable Unavailable EMERTON, A SUSY MD Unavailable Unavailable EMERTON, A SUSY MD Unavailable Unavailable EMERTON, A SUSY MD Unavailable Unavailable EMERTON, A SUSY MD Unavailable Unavailable EMERTON, A SUSY MD Unavailable Unavailable EMERTON, A SUSY MD Unavailable Unavailable EMERTON, A SUSY MD Unavailable Unavailable EMERTON, A SUSY MD Unavailable Unavailable EMERTON, A SUSY MD Unavailable Unavailable EMERTON, A SUSY MD Unavailable Unavailable EMERTON, A SUSY MD Unavailable Unavailable EMERTON, A SUSY MD Unavailable Unavailable EMERTON, A SUSY MD Unavailable Unavailable EMERTON, A SUSY MD Unavailable Unavailable EMERTON, A SUSY MD Unavailable Unavailable EMERTON, A SUSY MD Unavailable Unavailable EMERTON, A SUSY MD Unavailable Unavailable EMERTON, A SUSY MD Unavailable Unavailable EMERTON, A SUSY MD Unavailable Unavailable EMERTON, A SUSY MD Unavailable Unavailable EMERTON, A SUSY MD Unavailable Unavailable EMERTON, A SUSY MD Unavailable Unavailable EMERTON, A SUSY MD Unavailable Unavailable EMERTON, A SUSY MD Unavailable Unavailable EMERTON, A SUSY MD Unavailable Unavailable EMERTON, A SUSY MD Unavailable Unavailable EMERTON, A SUSY MD Unavailable Unavailable EMERTON, A SUSY MD Unavailable Unavailable EMERTON, A SUSY MD Unavailable Unavailable EMERTON, A SUSY MD Unavailable Unavailable EMERTON, A SUSY MD Unavailable Unavailable EMERTON, A SUSY MD Unavailable Unavailable EMERTON, A SUSY MD Unavailable Unavailable EMERTON, A SUSY MD Unavailable Unavailable EMERTON, A SUSY MD Unavailable Unavailable EMERTON, A SUSY MD Unavailable Unavailable EMERTON, A SUSY MD Unavailable Unavailable EMERTON, A SUSY MD Unavailable Unavailable EMERTON, A SUSY MD Unavailable Unavailable EMERTON, A SUSY MD Unavailable Unavailable EMERTON, A SUSY MD Unavailable Unavailable EMERTON, A SUSY MD Unavailable Unavailable EMERTON, A SUSY MD Unavailable Unavailable Re-disclosure Warning The records that you are about to access may contain information from federally-assisted alcohol or drug abuse programs. If such information is present, then the following federally mandated warning applies: This information has been disclosed to you from records protected by federal confidentiality rules (42 CFR part 2). The federal rules prohibit you from making any further disclosure of this information unless further disclosure is expressly permitted by the written consent of the person to whom it pertains or as otherwise permitted by 42 CFR part 2. A general authorization for the release of medical or other information is NOT sufficient for this purpose. The Federal rules restrict any use of the information to criminally investigate or prosecute any alcohol or drug abuse patient.The records that you are about to access may contain highly sensitive health information, the redisclosure of which is protected by Article 27-F of the [facility] Public Health law. If you continue you may have access to information: Regarding HIV / AIDS; Provided by facilities licensed or operated by the [facility] Office of Mental Health; or Provided by the [facility] Office for People With Developmental Disabilities. If such information is present, then the following [facility] mandated warning applies: This information has been disclosed to you from confidential records which are protected by state law. State law prohibits you from making any further disclosure of this information without the specific written consent of the person to whom it pertains, or as otherwise permitted by law. Any unauthorized further disclosure in violation of state law may result in a fine or alf sentence or both. A general authorization for the release of medical or other information is NOT sufficient authorization for further disc losure. Allergies and Adverse Reactions Type Description Substance Reaction Status Data Source(s ) Propensity to adverse reactions CONTRAST ALLERGY PREMED PACK CONTRAST ALLERGY PREMED P[facility] Family History Family Member Name Family Member Gender Family Member Status Date o f Status Description Data Source(s) Unknown Female Problem [facility] ([facility]) Unknown Female Encounters Encounter Providers Location Date Indications Data Source(s ) Outpatient Attender: Pedro Carrion/Sims/Aram/Rein dl 07/26/2021 08:00:00 AM EST [facility] ([facility]) Outpatient Attender: JOYCE FLOR MD Main Office 05/31/2021 02:45:00 PM EDT [facility] ([facility]) Outpatient Attender: JOYCE FLOR MD Main Office 05/29/2021 02:30:00 PM EDT [facility] ([facility]) Outpatient Attender: JOYCE FLOR MD Main Office 04/13/2021 10:15:00 AM EDT [facility] ([facility]) Outpatient Attender: Pedro Carrion/Sims/Aram/Rein dl 02/22/2021 11:30:00 AM EDT [facility] ([facility]) Outpatient Attender: Pedro Carrion/Sims/Aram/Rein dl 01/25/2021 10:30:00 AM EDT [facility] (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 Exam [id number] [place] [id number] 01/12/2021 12:00:00 AM EDT eCW1 ([facility]) Outpatient Attender: Deanne ZUNIGA 021 06:01:16 PM EDT - 12/22/2020 07:21:51 PM EDT [facility] ([facility] ) OFFICE OUTPATIENT VISIT 15 MINUTES Attender: JOSE ZUNIGA Physical Therapy 12/01/2020 04:00:00 PM EDT [facility] ([facility] ) Outpatient Attender: Jesus Nuñez MDReferrer: SUSY Christie 11/23/2020 11:27:50 AM EDT [facility] Recurring Patient Referrer: SUSY OSUNA MD 11/23/2020 10:2 1:29 AM EDT [facility] Recurring Patient Referrer: SUSY OSUNA MD 11/18/2020 11:1 1:02 AM EDT [facility] Outpatient Attender: JOSE RAOY PAConsultant: SUSY TERRAZAS MD 11/15/2020 11:53:00 AM EDT - 11/15/2020 12:53:00 PM EDT [facility] Office Visit Attender: JOSE ZUNIGA Physical Therapy 11/07/2020 09:30:00 AM EST [facility] ([facility]) Immunizations Vaccine Date Status Description Data Source(s) COVID-19 VACC, MRNA(PFIZER)/PF 06/03/2021 12:00:00 AM EDT completed [facility] COVID-19 VACCINE Pfizer 06/03/2021 12:00:00 AM EDT completed [facility] Vaccine Series Complete: YESThis Data wa s Submitted to [facility] [employer]. COVID-19 VACCINE Pfizer 11/19/2020 12:00:00 AM EDT completed [facility] Vaccine Series Complete: YESThis Data wa s Submitted to [facility] [employer]. COVID-19 VACCINE, MRNA, [id number], LNP-S (PFIZER)/PF 11/20/19 21 12:00:00 AM EDT completed [facility] COVID-19 VACCINE Pfizer 10/02/2020 12:00:00 AM EST completed [facility] Vaccine Series Complete: NOThis Data was Submitted to [facility] [employer]. COVID-19 VACCINE, MRNA, [id number], LNP-S (PFIZER)/PF 10/02/19 12:00:00 AM EST completed [facility] Medications Medication Brand Name Start Date Product Form Dose Route Admi nistrative Instructions Pharmacy Instructions Status Indications Reaction Description Data Source(s) 500 mg 07/12/2021 12:00:00 AM EST tablet 180 TAKE ONE TABLET BY MOUTH TWICE A DAY WITH MEALS TAKE ONE TABLET BY MOUTH TWICE A DAY WITH MEALS SOLD: 07/14/2021 [facility] Acetaminophen 325 MG / Hydrocodone Bitartrate 5 MG Ora [facility] Tablet 5-325 mg HYDROCODONE/ACETAMINOPHEN 07/12/2021 12:00:00 AM EST tablet 120 TAKE ONE TABLET BY MOUTH EVERY 6 HOURS MAXIMUM DAILY DOSE = FOUR TABLETS TAKE ONE TABLET BY MOUTH EVERY 6 HOURS MAXIMUM DAILY DOSE = FOUR TABLETS SOLD: 07/14/2021 [facility] Acetaminophen 325 MG / Hydrocodone Bitartrate 5 MG Ora l Tablet 5-325 mg HYDROCODONE/ACETAMINOPHEN 05/29/2021 12:00:00 AM EDT tablet 120 TAKE ONE TABLET BY MOUTH EVERY 6 HOURS MAXIMUM DAILY DOSE = 4 TABLETS TAKE ONE TABLET BY MOUTH EVERY 6 HOURS MAXIMUM DAILY DOSE = 4 TABLETS SOLD: 05/31/2021 [facility] Penicillin V Potassium 50 MG/ML Oral Solution Penicillin V P otassium 04/13/2021 12:00:00 AM EDT active [facility] ([facility]) Acetaminophen 325 MG / Hydrocodone Bitartrate 5 MG Ora l Tablet 5-325 mg HYDROCODONE/ACETAMINOPHEN 04/10/2021 12:00:00 AM EDT tablet 120 TAKE ONE TABLET BY MOUTH EVERY 6 HOURS MAXIMUM DAILY DOSE = 4 TAKE ONE TABLET BY MOUTH EVERY 6 HOURS MAXIMUM DAILY DOSE = 4 SOLD: 04/15/2021 [facility] 20 mg 04/10/2021 12:00:00 AM EDT tablet 90 TAKE ONE TABLET BY MOUTH ONCE DAILY WITH MEALS TAKE ONE TABLET BY MOUTH ONCE DAILY WITH MEALS SOLD: 0 04/15/2021 [facility] 10 mg 03/27/2021 12:00:00 AM EDT tablet 90 TAKE ONE TABLET BY MOUTH EVERY DAY TAKE ONE TABLET BY MOUTH EVERY DAY SOLD: 04/01/2021 [facility] Benazepril hydrochloride 10 MG Oral Tablet BENAZEPRIL HCL 03/27/2021 12:00:00 AM EDT tablet 90 TAKE ONE TABLET BY MOUTH HANSEL TAKE ONE TABLET BY MOUTH EVERY DAY SOLD: 06/30/2021 [facility] Acetaminophen 325 MG / Hydrocodone Bitartrate 5 MG Ora l Tablet 5-325 mg HYDROCODONE/ACETAMINOPHEN 02/21/2021 12:00:00 AM EDT tablet 120 TAKE ONE TABLET BY MOUTH EVERY 6 HOURS MAXIMUM DAILY DOSE = FOUR TABLETS TAKE ONE TABLET BY MOUTH EVERY 6 HOURS MAXIMUM DAILY DOSE = FOUR TABLETS SOLD: 02/24/2021 [facility] 500 mg 01/16/2021 12:00:00 AM EDT tablet 180 TAKE ONE TABLET BY MOUTH TWICE A DAY WITH FOOD TAKE ONE TABLET BY MOUTH TWICE A DAY WITH FOOD SOLD: [facility] 500 mg 01/16/2021 12:00:00 AM EDT tablet 180 TAKE ONE TABLET BY MOUTH TWICE A DAY WITH FOOD TAKE ONE TABLET BY MOUTH TWICE A DAY WITH FOOD SOLD: [facility] Acetaminophen 325 MG / Hydrocodone Bitartrate 5 MG Ora l Tablet 5-325 mg HYDROCODONE/ACETAMINOPHEN 12/30/2020 12:00:00 AM EDT tablet 120 TAKE ONE TABLET BY MOUTH EVERY 6 HOURS MAXIMUM DAILY DOSE = 4 TABLETS TAKE ONE TABLET BY MOUTH EVERY 6 HOURS MAXIMUM DAILY DOSE = 4 TABLETS SOLD: 01/02/2021 [facility] 20 mg 12/23/2020 12:00:00 AM EDT tablet 90 TAKE ONE TABLET BY MOUTH EVERY DAY WITH A MEAL TAKE ONE TABLET BY MOUTH EVERY DAY WITH A MEAL SOLD: [facility] 300 mg 12/22/2020 12:00:00 AM EDT capsule 30 TAKE ONE CAPSULE BY MOUTH THREE TIMES A DAY FOR 10 DAYS TAKE ONE CAPSULE BY MOUTH THREE TIMES A DAY FOR 10 DAY S SOLD: 12/22/2020 [facility] 5-325 mg 11/11/2020 12:00:00 AM EST tablet 120 TAKE ONE TABLET BY MOUTH EVERY 6 HOURS MAXIMUM DAILY DOSE = 4 TABLETS TAKE ONE TABLET BY MOUTH EVERY 6 HOURS MAXIMUM DAILY DOSE = 4 TABLETS SOLD: 11/12/2020 [facility] 20 mg 11/11/2020 12:00:00 AM EST tablet 21 TAKE 1 TABLET BY MOUTH TWICE A DAY FOR 5 DAYS THEN 1 DAILY FOR 5 DAYS, THEN 1/2 DAILY FOR 6 DAYS THEN 1/2 EVERY OTHER DAY FOR 6 DAYS TAKE 1 TABLET BY MOUTH TWICE A DAY FOR 5 DAYS THEN 1 DAILY FOR 5 DAYS, THEN 1/2 DAILY FOR 6 DAYS THEN 1/2 EVERY OTHER DAY FOR 6 DAYS SOLD: 11/12/2020 [facility] 20 mg 10/27/2020 12:00:00 AM EST tablet 10 TAKE ONE TABLET BY MOUTH TWICE A DAY TAKE ONE TABLET BY MOUTH TWICE A DAY SOLD: 10/27/2020 [facility] 20 mg 10/21/2020 12:00:00 AM EST tablet 10 TAKE ONE TABLET BY MOUTH TWICE A DAY TAKE ONE TABLET BY MOUTH TWICE A DAY SOLD: 10/21/2020 [facility] 5-325 mg 09/21/2020 12:00:00 AM EST tablet 120 TAKE ONE TABLET BY MOUTH EVERY 6 HOURS MAXIMUM DAILY DOSE = 4 TAKE ONE TABLET BY MOUTH EVERY 6 HOURS MAXIMUM DAILY DOSE = 4 SOLD: 09/24/2020 [facility] 10 mg 09/21/2020 12:00:00 AM EST tablet 90 TAKE ONE TABLET BY MOUTH EVERY DAY TAKE ONE TABLET BY MOUTH EVERY DAY SOLD: 12/26/2020 [facility] 10 mg 09/21/2020 12:00:00 AM EST tablet 90 TAKE ONE TABLET BY MOUTH EVERY DAY TAKE ONE TABLET BY MOUTH EVERY DAY SOLD: 09/24/2020 [facility] 40 mg 08/09/2020 12:00:00 AM EST capsule,delayed release (DR/EC) 90 TAKE ONE CAPSULE BY MOUTH EVERY DAY TAKE ONE CAPSULE BY MOUTH EVERY DAY SOLD: 04/23/2021 [facility] 40 mg 08/09/2020 12:00:00 AM EST capsule,delayed release (DR/EC) 90 TAKE ONE CAPSULE BY MOUTH EVERY DAY TAKE ONE CAPSULE BY MOUTH EVERY DAY SOLD: 08/13/2020 [facility] 5-325 mg 07/12/2020 12:00:00 AM EST tablet 120 TAKE ONE TABLET BY MOUTH EVERY 6 HOURS MAXIMUM DAILY DOSE = FOUR TABLETS TAKE ONE TABLET BY MOUTH EVERY 6 HOURS MAXIMUM DAILY DOSE = FOUR TABLETS SOLD: 07/15/2020 [facility] Metformin hydrochloride 500 MG Oral Tablet METFORMIN HCL 07/12/2020 12:00:00 AM EST tablet 180 TAKE ONE TABLET BY MOUTH TWI CE A DAY WITH MEALS TAKE ONE TABLET BY MOUTH TWICE A DAY WITH MEALS SOLD: 10/19/2020 [facility] Metformin hydrochloride 500 MG Oral Tablet METFORMIN HCL 07/12/2020 12:00:00 AM EST tablet 180 TAKE ONE TABLET BY MOUTH TWI CE A DAY WITH MEALS TAKE ONE TABLET BY MOUTH TWICE A DAY WITH MEALS SOLD: 07/15/2020 [facility] Insurance Providers Payer name Policy type / Coverage type Policy ID Covered green party ID Covered green party's relationship to carlson Policy Carlson Plan Information MVP Preferred (Hmo) Health Maintenance Organization (HMO) [id number] Self [id number] MEDICARE [id number] A MEDICARE [id number] SP [id number] Medicare [place] Primary [id number] Self [id number] Medicare Part B [facility] Other 0 [id number] Self 0 [employer] HE[employer] CARE [id number] SP [id number] DME Jurisdiction A [facility] C [id number] SELF [id number] MVP Healthcare F [id number] SELF [id number] Medicare C [id number] SELF [id number] V94 MVP Health Care 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 [id number] Self [id number] [place] Medicare Part B [id number] Self [id number] MVP Gold Commercial [id number] Self Medicare [place] Medicare Primary [id number] Self [facility] PHY [id number] SP [id number] MVP (pr) Commercial [id number] Self Medicare [place] Medicare Primary [id number] Self [id number] 2-A [employer] HEALTH CARE [id number] SP [id number] MEDICARE [id number] SP [id number] MVP MCR ADV - OP [id number] 18 [id number] MEDICARE PART A -O/P [id number] 18 [id number] MEDICARE C [id number] S [id number] MVP HEALTH CARE O [id number] S [id number] ANSI-Commercial [id number] ANSI-Medicare Part B [id number] MEDICARE C [id number] S [id number] A BS [place] Medigap Part B [id number] Self N [id number] Medicare Dme Supplies Medigap Part B [id number] Self [id number] Problems, Conditions, and Diagnoses Code Display Name Description Problem Type Effective Dates Data Source(s) M1611 Unilateral primary osteoarthritis, right hip Unilateral primary osteoarthritis, right hip Diagnosis 11/15/2020 11:53:00 AM EDT [facility] [id number] Essential hypertension Essential hypertension Problem 04/13/2021 12:00:00 AM EDT [facility] ([facility] ) [id number] Essential hypertension Essential hypertension Problem 01/25/2021 12:00:00 AM EDT [facility] ([facility], ) Surgeries/Procedures Procedure Description Date Indications Data Source(s) OFFICE OUTPATIENT VISIT 25 MINUTES 07/26/2021 12:00:00 AM EST [facility] ([facility], ) OFFICE OUTPATIENT VISIT 15 MINUTES 06/02/2021 12:00:00 AM EDT [facility] ([facility]) OFFICE OUTPATIENT VISIT 10 MINUTES 05/31/2021 12:00:00 AM EDT [facility] ([facility]) PATCH/APPLICATION TEST SPECIFY NUMBER TESTS 05/29/2021 12:00:00 AM EDT [facility] ([facility]) OFFICE OUTPATIENT VISIT 10 MINUTES 05/29/2021 12:00:00 AM EDT [facility] ([facility]) Allergy Testing Any Combination Of Percutaneous W/Drugs 04/13/2021 12:00:00 AM EDT [facility] ([facility] OFFICE OUTPATIENT NEW 30 MINUTES 04/13/2021 12:00:00 A M EDT [facility] ([facility]) OFFICE OUTPATIENT NEW 45 MINUTES 04/13/2021 12:00:00 A M EDT [facility] ([facility]) OFFICE OUTPATIENT VISIT 25 MINUTES 02/22/2021 12:00:00 AM EDT [facility] ([facility], ) OFFICE OUTPATIENT NEW 45 MINUTES 01/25/2021 12:00:00 A M EDT [facility] ([facility], ) ARTHROCENTESIS ASPIR&/INJECTION MAJOR JT/BURSA 021 12:00:00 AM EST [facility] ([facility] ) X-Ray Hip Unilateral With Pelvis 2-3 Views 11/07/2020 12:00:00 AM EST [facility] ([facility] ) Results ID Date Data Source [id number] 11/23/2020 11:27:50 AM EDT [facility] PCName: Asia MtzDOB: 1950Provider: Edgar Nuñez: 11/23/2020 Reason For VisitSOS Patient Intake: Asia Mtz is here today for her right hip. Asia had her second Covid vaccine on 11/19/20. Asia Mtz is an established patient here for a new problem. SOS Occupation and Work Status: Patient is retired. History of Present IllnessMarcia returns to clinic for repeat evaluation after last being seen in clinic by myself approximately 5 months ago. Patient states over the past few weeks she developed a increased right hip pain and discomfort which she occurred currently rates at a 4 out of 10 but states a few weeks ago was a 10 out of 10 pain which prompted her to initially be evaluated at [facility] orth[facility]ics on November 07, 2020 when she was evaluated to have both some mild right hip primary osteoarthritis along with some trochanteric bursitis of the right hip. After this visit patient did receive a cortisone injection to her right hip trochanteric bursa along with a fluoroscopic guided cortisone injection to her right hip performed approximately 1 week ago. On arrival today patient continues to ambulate with the use of an assistive device but states more relief of her symptoms from the trochanteric bursa injection and presents to the office today for my initial evaluation of her current right hip complaints. Patient continues to localize her pain and discomfort over the lateral aspect of her right hip centered over her trochanteric bursa and recently also has completed a p.o. steroid regimen prescribed by her primary care physician. Results/DataX-rays of the right hip including AP and lateral views previously performed were interpreted with the patient. There are mild degenerative changes of the hip with joint space narrowing and some early subchondral sclerosis. There is no radiographic evidence of AVN, fracture, or dislocation. AssessmentRight hip trochanteric bursitisMild right hip primary osteoarthritis PlanPlan:- I discussed the diagnosis and treatment options in detail with the patient .- I have discussed with patient in the office today believe most of her symptoms are due to an exacerbation of some right hip trochanteric bursitis as she does not have clinically any real symptoms related to her right hip primary osteoarthritis and her radiographs only show some mild degenerative changes but at this point recommend home physical exercise regimen focused on improving hip strengthening and range of motion which the patient is in agreement with and would like to proceed with this thkeillsn-Dtvx-qds-counter anti-inflammatories as needed for pain control-Recommended daily physical activity along with use of stationary bike for exercise to continue to work on and maintain hip range of motion and strengthening of the lower extremity-Follow up in clinic on an as-needed basis in the future discussed with patient I am okay with her receiving injections to her right hip trochanteric bursa every 3 months or so and if she wishes to have another 1 of these in 3 months from now to contact the office and we will schedule her to see one of the joint midlevel PAs for this injection- All questions were answered with patient and instructed to call office for sooner appointment if symptoms worsen or have any further questions Signatures Electronically signed by : Jesus Nuñez M.D.; Nov 23 2020 11:27AM EST (Author) Name Value Range Interpretation Code Description Data Georgette rce(s) Supporting Document(s) ID Date Data Source [id number] 11/16/2020 09:27:00 [place] [address] PHONE: [phone] FAX: [phone] Name .................. : SMITH Pruitt Acct Number.................. : [id number] ROOM. ................. : Number ................... : [id number] Stay type ............. : O/P Discharge Date......... ... : 11/15/20 Admit Date .... ..... : 11/15/20 Admit Phys .................... : PERRI Date of ....... : 1950 Family Phys ................... : THAO ELSA Phone .................. : [phone] Age ................................ : 70 Film# .................. .:[id number] Sex ................................. 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 PROCEDURE: The benefits and risks of the examination were discussed with the patient. The patient has given informed consent for the procedure. A time out was performed confirming the right hip is the proper hip for today's examination. The skin surface was marked using fluoroscopic guidance. The skin was prepped and dressed in normal sterile fashion. Superficial and deep Lidocaine administration was performed with a 25-gauge needle. A 22- gauge spinal needle was then placed and advanced under fluoroscopic guidance. The needle was passed into the joint space at which time iodinated contrast was administered to confirm proper placement. Approximately 5 cc of iodinated contrast was administered. Once the proper placement was confirmed, 1 cc of Kenalog as well as 5 cc of 1% lidocaine. The needle was then removed. The skin was cleansed and bandaged. No complications were experienced during the procedure. The pre-procedure pain level was 6/10. Post procedure pain level was 1/10. Examination dictated by EFRAIN Peoples. Examination was reviewed with Levon Hammonds MD, radiologist at the time of this dictation. Page 1 of 2 [facility] [address] [facility] [place] [address] PHONE: [phone] FAX: [phone] Name .................. : SMITH Pruitt Acct Number.................. : [id number] ROOM. ................. : MR Number ................... : [id number] Stay type ............. : O/P Discharge Date......... ... : 11/15/20 Admit Date ......... : 11/15/20 [facility] .................... [facility] ....... : 1950 Family Phys ................... : THAO HUNTER Phone .................. : [phone] Age ................................ : 70 Film# .................. .:[id number] Sex ................................. 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 : SMITH LOPEZ Sonal Acct Number.................. : [id number] ROOM. ................. : MR Number ................... : [id number] Stay type ............. : O/P Discharge Date......... ... : 11/15/20 Admit Date .... ..... : 11/15/20 Admit Phys .................... : PERRI Date of ....... : 1950 Family Phys ................... : THAO HUNTER Phone .................. : [phone] Age ................................ : 70 Film# .................. .:[id number] Sex ................................. 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 PROCEDURE: The benefits and risks of the examination were discussed with the patient. The patient has given informed consent for the procedure. A time out was performed confirming the right hip is the proper hip for today's examination. The skin surface was marked using fluoroscopic guidance. The skin was prepped and dressed in normal sterile fashion. Superficial and deep Lidocaine administration was performed with a 25-gauge needle. A 22- gauge spinal needle was then placed and advanced under fluoroscopic guidance. The needle was passed into the joint space at which time iodinated contrast was administered to confirm proper placement. Approximately 5 cc of iodinated contrast was administered. Once the proper placement was confirmed, 1 cc of Kenalog as well as 5 cc of 1% lidocaine. The needle was then removed. The skin was cleansed and bandaged. No complications were experienced during the procedure. The pre-procedure pain level was 6/10. Post procedure pain level was 1/10. Examination dictated by EFRAIN Peoples. Examination was reviewed with Levon Hammonds MD, radiologist at the time of this dictation. Page 1 of 2 [place] [address] PHONE: [phone] FAX: [phone] Name .................. : SMITH Pruitt Acct Number.................. : [id number] ROOM. ................. : MR Number ................... : [id number] Stay type ............. : O/P Discharge Date......... ... : 11/15/20 Admit Date ......... : 11/15/20 Admit Phys .................... : PERRI Date of ....... : 1950 Family Phys ................... : THAO ELSA Phone .................. : [phone] Age ................................ : 70 Film# .................. .:[id number] Sex ................................. 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 INJECTION Electronically Reviewed and Signed By Levon Hammonds MD , 11/16/20 09:27, KGG Transcribe Initials: ISABELLE , Transcribe Date: 11/15/20 23:42, Dictation Date: Copy for: PERRI Byers via fax Copy for: 710 MED REC Page 2 of 2 Name Value Range Interpretation Code Description Data Georgette rce(s) Supporting Document(s) Procedure Social History Code Duration Value Status Description Data Source(s ) Smoking 07/26/2021 12:00:00 AM EST Patient has never smoked co mpleted Patient has never smoked [facility] ([facility], ) Smoking 06/02/2021 12:00:00 AM EDT Patient has never smoked co mpleted Patient has never smoked [facility] ([facility] ) Smoking 01/12/2021 12:00:00 AM EDT Never Smoker completed Never S siomara [facility] Smoking 11/08/2020 12:00:00 AM EST Patient is a former smoker completed Patient is a former smoker [facility] ([facility]) Vital Signs ID Date Data Source UNK Name Value Range Interpretation Code Description Data Source(s) Body weight 97.864 kg 97.864 kg [facility] ([facility]) Body temperature 97.1 [degF] 97.1 [degF] [facility] ([facility]) Body height 60 [in_i] 60 [in_i] [facility] ([facility]) 5'0" Body surface area Derived from formula 1.93 m2 1.93 m2 [facility] ([facility]) Body weight 215.75 [lb_av] 215.75 [lb_av] [facility] Body mass index (BMI) [Ratio] 42.1 kg/m2 42.1 k g/m2 [facility] ([facility]) [place] body weight 100 [lb_av] 100 [lb_av] [facility] Body weight 217.00 [lb_av] 217.00 [lb_av] [facility] T ([facility]) Heart rate 73 /min 73 /min [facility] ([facility] Respiratory rate 18 /min 18 /min [facility] ( [facility]) Systolic blood pressure 155 mm[Hg] 155 mm[Hg] M [facility] ([facility]) Diastolic blood pressure 88 mm[Hg] 88 mm[Hg] [facility] ([facility]) Heart rate 74 /min 74 /min [facility] ([facility] Respiratory rate 16 /min 16 /min [facility] ( [facility]) Systolic blood pressure 162 mm[Hg] 162 mm[Hg] M [facility] ([facility]) Diastolic blood pressure 90 mm[Hg] 90 mm[Hg] [facility] ([facility]) Body mass index (BMI) [Ratio] 44.0 kg/m2 44.0 k g/m2 [facility] ([facility]) Body weight 216.00 [lb_av] 216.00 [lb_av] [facility] T ([facility]) Body height 58.75 [in_i] 58.75 [in_i] [facility] " Diastolic blood pressure 84 mm[Hg] 84 mm[Hg] [facility] ([facility]) Body weight 216.50 [lb_av] 216.50 [lb_av] [facility] T ([facility]) Body height 58.75 [in_i] 58.75 [in_i] [facility] ([facility] ." Body mass index (BMI) [Ratio] 44.1 kg/m2 44.1 k g/m2 [facility] ([facility]) Systolic blood pressure 158 mm[Hg] 158 mm[Hg] M [facility] ([facility]) Heart rate 81 /min 81 /min [facility] ([facility] Respiratory rate 18 /min 18 /min [facility] ( [facility]) Diastolic blood pressure 88 mm[Hg] 88 mm[Hg] [facility] ([facility]) Body weight 216.00 [lb_av] 216.00 [lb_av] [facility] T ([facility]) Body height 58.75 [in_i] 58.75 [in_i] [facility] ([facility] ." Body mass index (BMI) [Ratio] 44.0 kg/m2 44.0 k g/m2 [facility] ([facility]) Heart rate 70 /min 70 /min [facility] ([facility] Respiratory rate 18 /min 18 /min [facility] ( [facility]) Systolic blood pressure 160 mm[Hg] 160 mm[Hg] M [facility]ENT ([facility]) Body temperature 97.9 [degF] 97.9 [degF] [facility] ([facility]) Body temperature 97.9 [degF] 97.9 [degF] [facility] ([facility]) Body temperature 97.2 [degF] 97.2 [degF] [facility] ([facility]) Body height 60 [in_i] 60 [in_i] [facility] ([facility]) 5'0" Body weight 213.00 [lb_av] 213.00 [lb_av] [facility] T ([facility]) Body mass index (BMI) [Ratio] 41.6 kg/m2 41.6 k g/m2 [facility] ([facility]) [place] body weight 100 [lb_av] 100 [lb_av] [facility] T ([facility]) Body weight 96.617 kg 96.617 kg [facility] ([facility]) Body surface area Derived from formula 1.92 m2 1.92 m2 [facility] ([facility]) Body weight 216 [lb_av] 216 [lb_av] eCW1 ([facility]) Body weight 97.98 kg 97.98 kg W1 ([facility]) Body height [in_i] eCW1 ([facility]) Body mass index (BMI) [Ratio] 43.62 kg/m2 43.62 kg/m2 [facility]) Systolic blood pressure 132 mm[Hg] 132 mm[Hg] e CW1 ([facility]) Diastolic blood pressure 84 mm[Hg] 84 mm[Hg] eCW1 ([facility]) Body temperature 97.1 [degF] 97.1 [degF] [facility] ([facility] ) Body height 60 [in_i] 60 [in_i] [facility] ([facility] ) 5'0" Body weight 207.00 [lb_av] 207.00 [lb_av] MED[facility] T ([facility]) Body mass index (BMI) [Ratio] 40.4 kg/m2 40.4 k g/m2 [facility] ([facility])
[2021-08-15] MEDS ORDERED: ROPIVA 125MG/EPINEPH 0.25MG/CLONID 40MCG/KETOR 15MG IN NS 50ML SYRINGE PA ONE (07:00)
[2021-08-15] MEDS ORDERED: TRANEXAMIC ACID 100 MG/ML 10ML VIAL As Ordered ONE (07:12)
[2021-08-15] MEDS ORDERED: MIDAZOLAM INJ 2MG/2ML VIAL (J2250 PER 1MG) As Ordered ONE (08:03)
[2021-08-15] MEDS ORDERED: fentaNYL 100 MCG/2 ML INJECTION (J3010) As Ordered ONE (08:03)
[2021-08-15] MEDS ORDERED: propofoL 200 MG/20 ML VIAL As Ordered ONE ×3 (08:03→09:21)
[2021-08-15] MEDS ORDERED: ePHEDrine SULFATE 25 MG/5 ML(5MG/ML) SYRINGE As Ordered ONE (08:25)
--- NOTE | 2021-08-15 10:41 | ROOPDOC ---
[facility] Report Of Operation Report of Operation DATE OF PROCEDURE: 08/15/21 PREPROCEDURE DIAGNOSES: Right knee osteoarthritis in the setting of concern for metal allergy POSTPROCEDURE DIAGNOSES: Right knee osteoarthritis in the setting of concern for metal allergy PROCEDURE: Tricompartmental left knee total knee arthroplasty SURGEON: Pedro Murcia MD DIRECTOR OF PHARMACY: Lisa Padilla PA-C ANESTHESIA: Spinal ESTIMATED BLOOD LOSS: Approximately less than 150 mL. COMPLICATIONS: No known complications REMARKS: Tourniquet was not inflated Components: Journey 2 BCS knee [employer] Size 4 Oxinium femoral component Size 2 tibial Size 12 constrained polyethylene posterior stabilized insert Size 32 patella by 9 mm thickness X2 antibiotic cement Simplex cement PROCEDURE NOTE: The patient was seen in the preoperative area and the right lower extremity was marked. She denied any changes in her medical history or otherwise. She is grossly neurovascularly intact to the left lower extremity.. DESCRIPTION OF PROCEDURE: The patient was taken to the operating room and after a surgical pause, the anesthetic was carried out. The patient was positioned supine with appropriate padding. A tourniquet was placed to the left lower extremity around the thigh. 1 g of IV tranexamic acid was administered prior to incision. 1 g vancomycin IV were administered prior to incision. The lower extremity was scrubbed with a chlorhexidine brush. It was then cleansed with alcohol swabs 2 and then hydrogen peroxide solution This was followed by a sterile prep with 2 times chlorhexidine brushes and then a sterile drape in the standard fashion. A surgical pause was carried out followed by surgical safety checklist. The incision was started midline. This was carried down through subcutaneous fat. The tissue to the fascia and capsule. A midline arthrotomy was carried out. Fluid within the knee was suctioned out. The incision was carried down to expose the joint. A medial soft tissue release was carried out using electrocautery. This was cauterized with electrocautery. The patella was everted and the fat pad was removed. The soft tissue of the superior lateral aspect of the femur anteriorly, was removed with electrocautery. The anterior cruciate ligament and portions of the posterior cruciate ligament were excised with electrocautery. The distal femur. Intramedullary drill was introduced in the appropriate position. The intramedullary yannick was placed. The distal femoral cutting jig was positioned and the appropriate cut was made with a saw. After this was secured with 2 pins. This was removed. Of note, Homans were used to protect the collateral ligaments throughout the surgical intervention. Attention was then turned to the proximal tibia. The external alignment jig was placed. This was positioned with the 9 mm off the high lateral side stylus. Alignment was maintained along with the anterior tibial crest and the second metatarsal. The appropriate cut was utilized using the 3 degree cutting jig for the tibia. Paddles were used to balance the flexion and extension gap. The flexion gap was slightly thicker at 11 mm. Attention was then turned to the femur. The 3 rotational guide was added for 3 of external rotation and a size #4 tibia was sized. This was placed for the 5-in-1 cutting block. The anterior and then the posterior and then the posterior and anterior chamfer cuts were made with the sagittal saw as well as the additional 15 degree cut for the 5. The jig was removed. Attention was turned to the gap space. Using electrocautery of the remnants of the medial lateral menisci were excised. Flexion cautery was utilized to control any bleeders. Posterior osteophytes were removed with a curved osteotome. At this point, the femoral posterior stabilized cutting block was placed. The reamers were utilized followed by the box osteotomes to clear out the intercondylar notch region. A rongeur was used to remove bone remnant and electrocautery was used to remove the soft tissue from this bone. The trial femoral component was placed. A trial tibial component was then attempted to be placed The tibial trial was easily placed and found to be stable in flexion and extension, with about a millimeter or so of lateral laxity in flexion and extension. A thorough irrigation of the soft tissues was carried out. The tibial component was placed and aligned with the tibial tubercle around the medial third of the tibial tubercle. This tibial tray was pinned here and the keel punch was placed. This was impacted appropriately. Attention was turned to the patella. With the knee in extension, the patella was sized and appropriately cut for a 9 mm insert. Of note, several passes were carried out due to difficulty aligning the cutting jig. Ultimately a freehand cut was performed utilizing towel clips. This was found to be appropriate. A 32 mm extended polyethylene was found to be appropriate. This was drilled and a trial was placed and taken through a range of motion. All the components appeared to be in good position and alignment. A lateral facetectomy was carried out with a rongeur Irrigation of the soft tissues was carried out. I looked for any bleeders with the leg in extension. I did not see any active bleeders but there was a fairly steady ooze from the bone and soft tissue edges. The final components were opened with the exception of the tibial insert. Cementing was mixed on the back table. The tibial component was buttered, as well as the bone surface with cement and this component was placed and impacted on the cemented surface. Cement was applied to the femoral component and onto the femur. This was impacted. Excess extruded cement was removed with the Selby. The 11 mm polyethylene insert was placed and the leg was brought into extension to allow the cement to cure. The cement was curing quite quickly, so attention was turned to the patella. Which was appropriately seated and compressed. While the cement was drying, the knee was placed in extension or remained in extension and 2 g of topical tranexamic acid was placed as well as some Betadine and this was allowed to sit for over 3 minutes. Once the cement was dry, the clamp was removed from the patella and the knee was brought into flexion. The polyethylene was removed. An osteotome was used to remove any excess cement. Thorough irrigation occurred. A size 12 PS polyethylene insert was placed and impacted with the test evaluator into appropriate position. A Selby was utilized to ensure that this was appropriately locked in position. Thorough irrigation was then carried out. The joint was soaked in Betadine, dilute solution. The knee was taken through a range of motion and was found to be stable in flexion and extension. The patella to be tracking appropriately. The wound was again thoroughly irrigated and the arthrotomy was closed with #1 Vicryl interrupted sutures followed by a running strata fix suture, #1. Irrigation with Betadine and saline solution was carried out between the layers. Interrupted #1 Vicryl was used to close down the subcutaneous fat. A running 2. 0 Vicryl was then used to close down the subcutaneous cutaneous layer followed skin glue and Zipline closure. The Mepilex dressing with silver was then applied. This will remain in position for 7 days. The patient will be weightbearing as tolerated. X-ray imaging will be reviewed in PACU. The patient will be admitted to the hospitalist service with plans for discharge tomorrow morning. Appropriate home care, home physical therapy and home occupational therapy assessments will be arranged upon discharge. PEDRO MURCIA MD Aug 15, 2021 10:41
--- NOTE | 2021-08-15 10:43 | REP ---
INDICATION: POST OP/ PACU COMPARISON: None. TECHNIQUE: Portable AP and cross-table lateral views. FINDINGS: Normal appearance and positioning to the femoral and tibial components. Overlying postsurgical changes include soft tissue swelling and subcutaneous emphysema. IMPRESSION: Status post right knee replacement. <Electronically signed by Klaus Roís > 08/15/21 1030
[2021-08-15] MEDS ORDERED: ACETAMINOPHEN TAB 650MG DOSE (2X325MG) PO PRN (11:10)
[2021-08-15] MEDS ORDERED: LR 1,000 ML IV SCH ×2 (11:55)
[2021-08-15] MEDS ORDERED: ONDANSETRON 4MG/2ML VIAL IV PRN ×3 (11:55→12:00)
[2021-08-15] MEDS ORDERED: METOCLOPRAMIDE INJ 10MG/2ML VIAL (J2765 PER 1) IV PRN (11:55)
[2021-08-15] MEDS ORDERED: oxyCODONE 5MG TAB PO PRN ×2 (11:55→12:00)
[2021-08-15] MEDS ORDERED: fentaNYL 100 MCG/2 ML INJECTION (J3010) IV PRN (11:55)
[2021-08-15] MEDS ORDERED: SENNA 8.6 MG TAB (SENOKOT) PO PRN (12:00)
[2021-08-15] MEDS: ACETAMINOPHEN TAB 650MG DOSE (2X325MG) PO SCH ×2 (12:00→17:34)
[2021-08-15] MEDS ORDERED: OMEP-218 PO (12:15)
[2021-08-15] MEDS ORDERED: HOME MED LIST COMPLETE! XX SCH (12:20)
[2021-08-15] MEDS ORDERED: GLUCAGON INJ 1MG VIAL SC PRN (13:35)
[2021-08-15] MEDS ORDERED: DEXTROSE 50% 50 ML SYRINGE IV PRN (13:35)
[2021-08-15] MEDS ORDERED: GLUCOSE 4GM CHEW TABLET PO PRN (13:35)
--- NOTE | 2021-08-15 13:37 | HPEPDOC ---
[facility] Medical History & Physical Date of Admission Aug 15, 2021 Date of Service: Aug 15, 2021 Attending Physician: Coni Wolfe MD History and Physical CHIEF COMPLAINT: Status post right knee arthroplasty HISTORY OF PRESENT ILLNESS: Patient is a 71-year-old female past medical history of hypertension, diabetes, hyperlipidemia, osteoarthritis who presented to [facility] on 08/15/2021 for right total knee arthroplasty with history of right knee osteoarthritis in the setting of concern for metal allergy. The patient has had a history of right knee pain in the past and recently it started to affect her activities at home. She had followed with with pubic surgery as outpatient, as she mobilizes with a crutch at home. The patient had to have allergy testing and was booked for the [employer] Oxinium metal allergy knee replacement today. The patient underwent tricompartmental right knee total knee arthroplasty without any issues by Dr. Pedro Villareal. Blood loss was 150 mL. Postoperatively the patient had no acute complaints. She was admitted to medicine service postoperatively. At the time of admission the patient denied chest pain, shortness of breath, fevers, chills, nausea, vomiting, lightheadedness, numbness or tingling of the right lower extremity, extremity pain. REVIEW OF SYSTEMS: Negative except for what is mentioned above PAST MEDICAL HISTORY: Hypertension Diabetes Hyperlipidemia osteoarthritis Anemia PAST SURGICAL HISTORY: Right total knee arthroplasty 08/15/2021 Breast biopsybilateral Back surgery L5, S1 Carpal tunnel decompression bilateral History of knee arthroplastyx2 right knee, x1 left knee Tonsillectomy EGD and colonoscopy FAMILY HISTORY: No significant family history SOCIAL HISTORY: Denies smoking, alcohol or illicit drug use. Lives with her family locally. Ambulates with assistive device at baseline. Full code. ALLERGIES: Please see below. HOME MEDICATIONS: Please see below. PHYSICAL EXAMINATION: VS: Stable, see below CONSTITUTIONAL: No acute distress, resting comfortably, AAO x 3 EYES: PERRLA, EOM intact HENT, MOUTH: Normocephalic, atraumatic, moist mucous membranes, NECK: SUPPLE, no JVD, no lymphadenopathy, no carotid bruit CV: Regular rate and rhythm, S1S2 normal, no murmurs/rubs/gallops RESPIRATORY: Clear to auscultation bilaterally, no rales/rhonchi/wheezes GI: Obese abdomen. BS positive in 4 quadrants, soft, nontender, nondistended, no rebound or guarding, no organomegaly : Deferred MUSCULOSKELETAL: Right lower extremity wrapped in Pepe bandage and knee immobilizer. Range of motion not tested. No pain elicited on exam. No cyanosis, clubbing, joint deformity INTEGUMENTARY: Intact, no rashes, no lesions, no erythema NEUROLOGIC: Cranial Nerves II-XII are intact, no focal deficits PSYCHIATRIC: Mood and affect are normal LABORATORY DATA: Please see below IMAGING: R knee XR post op: Status post right knee replacement. ASSESSMENT: 71-year-old female with history of hypertension, hyperlipidemia, diabetes admitted status post right knee arthroplasty for observation. PLAN: Right knee osteoarthritis status post right knee arthroplasty, postop day 0 -Surgery without complication, minimal blood loss -Orthopedic surgery consulted -Weight-bear as tolerated, ambulate with walker and assist weight-bear as tolerated, out of bed day of surgery, no sitting greater than 60 minutes. -Per Ortho keep knee extended. -Pain management per Ortho, anticoagulation to be started when okayed by orthopedic surgery -Bowel regimen -Wound care per Ortho -PT/OT Hypertension -Resume home meds Diabetes -Insulin sliding scale, fingerstick AC/at bedtime -Holding Metformin -Consistent carb diet Hyperlipidemia -Continue home statin GERD -PPI DVT prophylaxis -To touch base with Ortho to see when okay to start anticoagulation DISPOSITION: Admitted as acute inpatient. Ortho consulted. PT/OT Vital Signs Vital Signs Date Time Temp Pulse Resp B/P (MAP) Pulse Ox O2 Delivery O2 Flow Rate FiO2 08/15/21 12:30 72 16 127/61 (83) 96 08/15/21 12:01 Room Air 08/15/21 11:10 96.3 Laboratory Data Labs 24H Laboratory Tests 2 08/15/21 07:28: Bedside Glucose (Misc Panel) 132H Home Medications Scheduled Benazepril HCl (Benazepril HCl) 10 Mg Tab, 10 MG PO DAILY Ferrous Gluconate (Ferrous Gluconate) 324 Mg Tablet, 324 MG PO DAILY Lovastatin (Lovastatin) 20 Mg Tab, 20 MG PO QPM Metformin HCl (Metformin HCl) 500 Mg Tab, 500 MG PO BID Omeprazole (Omeprazole) 20 Mg Capsule.dr, 20 MG PO DAILY PT states taking at 4pm Scheduled PRN Hydrocodone/Acetaminophen (Hydrocodone-Acetamin 5-325 mg) 1 Tab Tab, 1 TAB PO QID PRN for PAIN LEVEL 5-7 Allergies Coded Allergies: Penicillins (Verified Allergy, Severe, difficulty breathing, 08/15/21) Iodinated Contrast Media (Verified Allergy, Intermediate, HIVES, 08/15/21) cefaclor (Verified Allergy, Intermediate, hives, 08/15/21) METALS (Verified Allergy, Unknown, nickel, gold sulfate, 08/15/21) meperidine (Verified Adverse Reaction, Intermediate, hallucinations, 08/15/21) naloxone (Verified Adverse Reaction, Intermediate, hallucinations, 08/15/21) pentazocine (Verified Adverse Reaction, Intermediate, hallucinations, 08/15/21) A-FIB/CHADSVASC A-FIB History Current/History of A-Fib/PAF?: No Current PO Anticoag Therapy: No Age/Risk Factor Scoring CHADSVASC: CHADSVASC Response (Comments) Value Age Risk Factor Age 65-74 years old 1 Gender Risk Factor Female 1 Hx of CHF No 0 Hx of HTN Yes 1 Hx of Stroke/TIA/or VTE No 0 Hx of Diabetes Yes 1 Hx of Vascular Disease No 0 Total 4 Treatment Treatment ordered: Other Other anticoagulant ordered: teds/scd Coni Wolfe MD Aug 15, 2021 13:37
[2021-08-15] MEDS: traMADol 50 MG TAB PO PRN ×2 (15:36→21:08)
[2021-08-15] MEDS: FERROUS SULFATE 325MG TAB PO SCH (17:34)
[2021-08-15] MEDS: ASCORBIC ACID 500 MG TAB PO SCH (17:35)
[2021-08-15] MEDS: HumaLOG INSULIN (NovoLOG) PER UNIT SC SCH (17:37)
[2021-08-15] MEDS: VANCOMYCIN HCL 1,000 MG, VIAL MATE ADAPTER 1 EACH in NS 250 ML IV SCH (18:34)
[2021-08-15] MEDS ORDERED: HumaLOG INSULIN (NovoLOG) PER UNIT SC SCH (21:00)
[2021-08-15] MEDS: NAPROXEN 250 MG TAB PO SCH (21:00)
[2021-08-15] MEDS ORDERED: SIMVASTATIN 20 MG TAB PO SCH (21:00)
[2021-08-15] MEDS: ASPIRIN 81MG ENTERIC TABLET PO SCH (21:05)
[2021-08-15] MEDS: DOCUSATE SODIUM 100MG CAPSULE PO SCH (21:05)
[2021-08-16] MEDS: oxyCODONE 5MG TAB PO PRN ×2 (00:50→06:09)
[2021-08-16 02:00] VITALS: BP 132/80
[2021-08-16 06:00] VITALS: BP 135/90
[2021-08-16] MEDS: VANCOMYCIN HCL 1,000 MG, VIAL MATE ADAPTER 1 EACH in NS 250 ML IV SCH (06:08)
[2021-08-16] MEDS: ACETAMINOPHEN TAB 650MG DOSE (2X325MG) PO SCH ×4 (06:09→18:03)
[2021-08-16 06:51] LABS: HEMATOCRIT 35.9 % (36.0-47.0); HEMOGLOBIN 11.5 g/dl (12.0-15.5); MEAN CORPUSCULAR HEMOGLOBIN 31.8 pg (27.0-33.0); MEAN CORPUSCULAR VOLUME 99.2 fl (80.0-96.0); PLATELET COUNT, AUTOMATED 220 10^3/uL (150-450); RED BLOOD COUNT 3.62 10^6/uL (4.00-5.40); WHITE BLOOD COUNT 13.7 10^3/uL (4.0-10.0)
[2021-08-16 07:06] LABS: ALBUMIN 2.7 GM/DL (3.2-5.2); ALT/SGPT 19 U/L (12-78); BILIRUBIN,TOTAL 0.4 MG/DL (0.2-1.0); BLOOD UREA NITROGEN 17 MG/DL (7-18); CALCIUM LEVEL 8.2 MG/DL (8.8-10.2); CARBON DIOXIDE LEVEL 27 MEQ/L (21-32); CHLORIDE LEVEL 105 MEQ/L (98-107); GLOMERULAR FILTRATION RATE > 60.0 (>39); GLUCOSE, FASTING 157 MG/DL (70-100); POTASSIUM SERUM 4.9 MEQ/L (3.5-5.1); SODIUM LEVEL 138 MEQ/L (136-145); TOTAL PROTEIN 5.8 GM/DL (6.4-8.2)
[2021-08-16] MEDS ORDERED: metFORMIN (GLUCOPHAGE) 500MG TAB PO SCH (08:00)
--- NOTE | 2021-08-16 08:05 | IPNPDOC ---
Text Note Date of Service The patient was seen on 08/16/21. NOTE POD 1 Right TKA Pt reports moderate amount of pain especially with using the commode as her legs tend to dangle due to her short stature, however this is well controlled with her pain meds. This should not be a problem when she returns home as her toilet at home sits lower to the floor. Denies CP/SOB. Has mobilized to bedside commode multiple times. Bulky dressing intact, taken down. No staining to dressing. Grossly NVI to light touch to R foot and ankle. Palpable DP and PT pulses. Moving foot and toes. PACU x-ray imaging shows prosthesis in position with no signs of complications or periprosthetic fractures. Plan for DC home after Hospitalist and PT eval. VS,Angie, I+O VS, Angie, I+O Laboratory Tests 08/16/21 06:08 Vital Signs Date Time Temp Pulse Resp B/P (MAP) Pulse Ox O2 Delivery O2 Flow Rate FiO2 08/16/21 06:39 18 08/16/21 06:09 104 95 Room Air 08/16/21 06:00 97.9 135/90 (105) I&O- Last 24 Hours up to 6 AM 08/16/21 05:59 Intake Total 4117 ml Balance 4117 ml SARAH HWANG Aug 16, 2021 08:05
[2021-08-16] MEDS: ASPIRIN 81MG ENTERIC TABLET PO SCH (08:15)
[2021-08-16] MEDS: DOCUSATE SODIUM 100MG CAPSULE PO SCH (08:15)
[2021-08-16] MEDS: ASCORBIC ACID 500 MG TAB PO SCH (08:15)
[2021-08-16] MEDS: HumaLOG INSULIN (NovoLOG) PER UNIT SC SCH ×3 (08:15→17:30)
[2021-08-16] MEDS: FERROUS SULFATE 325MG TAB PO SCH (08:15)
[2021-08-16] MEDS: NAPROXEN 250 MG TAB PO SCH (08:16)
[2021-08-16] MEDS ORDERED: OMEPRAZOLE 20 MG CAP PO SCH (09:00)
[2021-08-16] MEDS ORDERED: FERROUS GLUCONATE 324 MG TAB PO SCH (09:00)
[2021-08-16] MEDS ORDERED: BENAZEPRIL 5MG TAB PO SCH (09:00)
[2021-08-16 09:18] VITALS: BP 151/83
[2021-08-16 09:55] VITALS: O2SAT 92
[2021-08-16] MEDS: traMADol 50 MG TAB PO PRN (15:27)
[2021-08-16] MEDS ORDERED: COLA100C5 PO (16:53)
[2021-08-16] MEDS ORDERED: OXYC-517 PO (16:53)
[2021-08-16] MEDS ORDERED: SENN18TA PO (16:53)
[2021-08-16] MEDS ORDERED: ASPI-551 PO (16:53)
--- NOTE | 2021-08-16 17:00 | DS.PDOC ---
Discharge Summary General Date of Admission 08/15/21 Date of Discharge 08/16/21 Attending Physician: Coni Wolfe MD Discharge Summary PROCEDURES PERFORMED DURING STAY: Right knee arthroplasty ADMITTING DIAGNOSES: Right knee osteoarthritis status post right knee arthroplasty Hypertension Diabetes Hyperlipidemia GERD DISCHARGE DIAGNOSES: Right knee osteoarthritis status post right knee arthroplasty Hypertension Diabetes Hyperlipidemia GERD COMPLICATIONS/CHIEF COMPLAINT: Right Knee Osteoarthritis. HISTORY OF PRESENT ILLNESS: Patient is a 71-year-old female past medical history of hypertension, diabetes, hyperlipidemia, osteoarthritis who presented to [facility] on 08/15/2021 for right total knee arthroplasty with history of right knee osteoarthritis in the s etting of concern for metal allergy. The patient has had a history of right knee pain in the past and recently it started to affect her activities at home. She had followed with with pubic surgery as outpatient, as she mobilizes with a crutch at home. The patient had to have allergy testing and was booked for the [employer] Oxinium metal allergy knee replacement today. HOSPITAL COURSE: The patient underwent tricompartmental right knee total knee arthroplasty without any issues by Dr. Pedro Villareal on 08/15/21. Blood loss was 150 mL. Postoperatively the patient had no acute complaints. She was admitted to medicine service postoperatively. At the time of admission the patient denied chest pain, shortness of breath, fevers, chills, nausea, vomiting, lightheadedness, numbness or tingling of the right lower extremity, extremity pain. The following issues were treated while in patient: Right knee osteoarthritis status post right knee arthroplasty, postop day 1 -Surgery without complication, minimal blood loss -Weight-bear as tolerated, ambulate with walker and assist weight-bear as tolerated, out of bed day of surgery, no sitting greater than 60 minutes. -Pain management , anticoagulation with ASA BID -Bowel regimen -Wound care per Ortho and to f/u with in clinic -PT o/p Hypertension -Resume home meds Diabetes -C/w Metformin -Consistent carb diet Hyperlipidemia -Continue home statin GERD -PPI DVT prophylaxis -ASA BID DISCHARGE MEDICATIONS: Please see below. ALLERGIES: Please see below. PHYSICAL EXAMINATION ON DISCHARGE: VS: Stable, see below CONSTITUTIONAL: No acute distress, resting comfortably, AAO x 3 EYES: PERRLA, EOM intact HENT, MOUTH: Normocephalic, atraumatic, moist mucous membranes, NECK: SUPPLE, no JVD, no lymphadenopathy, no carotid bruit CV: Regular rate and rhythm, S1S2 normal, no murmurs/rubs/gallops RESPIRATORY: Clear to auscultation bilaterally, no rales/rhonchi/wheezes GI: Obese abdomen. BS positive in 4 quadrants, soft, nontender, nondistended, no rebound or guarding, no organomegaly : Deferred MUSCULOSKELETAL: Right lower extremity wrapped in Pepe bandage and knee immobilizer. Range of motion not tested. No pain elicited on exam. No cyanosis, clubbing, joint deformity INTEGUMENTARY: Intact, no rashes, no lesions, no erythema NEUROLOGIC: Cranial Nerves II-XII are intact, no focal deficits PSYCHIATRIC: Mood and affect are normal LABORATORY DATA: Please see below. IMAGING: R knee XR post op: Status post right knee replacement. PROGNOSIS: Good ACTIVITY: As tolerated DIET: consistent carb DISCHARGE INSTRUCTIONS / ITEMS TO FOLLOWUP ON ON OUTPATIENT: 1. Follow up with orthopedic surgery as scheduled. 2. Activity as per orthopedic surgery. DISCHARGE CONDITION: Stable TIME SPENT ON DISCHARGE: 35 minutes. Vital Signs/I&Os Vital Signs Date Time Temp Pulse Resp B/P (MAP) Pulse Ox O2 Delivery O2 Flow Rate FiO2 08/16/21 15:57 18 08/16/21 15:27 Room Air 08/16/21 09:55 92 08/16/21 09:18 151/83 08/16/21 06:09 104 08/16/21 06:00 97.9 I&O- Last 24 Hours up to 6 AM 08/16/21 06:00 Intake Total 4267 ml Balance 4267 ml Laboratory Data Labs 24H Laboratory Tests 2 08/15/21 17:17: Bedside Glucose (Misc Panel) 139H 08/15/21 20:03: Bedside Glucose (Misc Panel) 183H 08/16/21 05:07: Bedside Glucose (Misc Panel) 144H 08/16/21 06:08: Nucleated Red Blood Cells % (auto) 0.0, Anion Gap 6L, Glomerular Filtration Rate > 60.0, Calcium Level 8.2L, Total Bilirubin 0.4, Aspartate Amino Transf (AST/SGOT) 13, Alanine Aminotransferase (ALT/SGPT) 19, Alkaline Phosphatase 98, Total Protein 5.8L, Albumin 2.7L, Albumin/Globulin Ratio 0.9L 08/16/21 12:01: Bedside Glucose (Misc Panel) 197H 08/16/21 16:30: Bedside Glucose (Misc Panel) 151H CBC/BMP Laboratory Tests 08/16/21 06:08 FSBS Laboratory Tests Test 08/15/21 17:17 08/15/21 20:03 08/16/21 05:07 08/16/21 12:01 Range/Units Bedside Glucose (Misc Panel) 139 183 144 197 83-110 MG/DL Test 08/16/21 16:30 Range/Units Bedside Glucose (Misc Panel) 151 83-110 MG/DL Discharge Medications Scheduled Aspirin (Aspirin EC) 81 Mg Tablet.dr, 81 MG PO BID Benazepril HCl (Benazepril HCl) 10 Mg Tab, 10 MG PO DAILY, (Reported) Docusate Sodium (Colace) 100 Mg Capsule, 100 MG PO BID Ferrous Gluconate (Ferrous Gluconate) 324 Mg Tablet, 324 MG PO DAILY, (Reported) Lovastatin (Lovastatin) 20 Mg Tab, 20 MG PO QPM, (Reported) Metformin HCl (Metformin HCl) 500 Mg Tab, 500 MG PO BID, (Reported) Omeprazole (Omeprazole) 20 Mg Capsule.dr, 20 MG PO DAILY, (Reported) PT states taking at 4pm Scheduled PRN Oxycodone HCl (Oxycodone HCl) 5 Mg Tablet, 5 MG PO Q6HP PRN for MODERATE/SEVERE PAIN (PS 5-10) Senna (Senna Lax) 8.6 Mg Tablet, 2 TAB PO DAILYPRN PRN for CONSTIPATION Allergies Coded Allergies: Penicillins (Verified Allergy, Severe, difficulty breathing, 08/15/21) Iodinated Contrast Media (Verified Allergy, Intermediate, HIVES, 08/15/21) cefaclor (Verified Allergy, Intermediate, hives, 08/15/21) METALS (Verified Allergy, Unknown, nickel, gold sulfate, 08/15/21) meperidine (Verified Adverse Reaction, Intermediate, hallucinations, 08/15/21) naloxone (Verified Adverse Reaction, Intermediate, hallucinations, 08/15/21) pentazocine (Verified Adverse Reaction, Intermediate, hallucinations, 08/15/21) Coni Wolfe MD Aug 16, 2021 17:00
== END 2021-08-16 18:20 | disposition home or self-care (01) | DRG 470 ==
LOC: M SDC 06:21 → M MS5PR 11:15 → M SDC 08-16 18:20
PROVIDERS: ADMIT Internal Medicine; ATTEND Internal Medicine
PROC: 0SRC0JZ Replacement of Right Knee Joint with Synthetic Substitute, Open Approach (ICD-10-PCS; principal; 2021-08-15 07:30)
DX: M17.11 Unilateral primary osteoarthritis, right knee (principal); I10 Essential (primary) hypertension; E11.9 Type 2 diabetes mellitus without complications; E78.5 Hyperlipidemia, unspecified; D64.9 Anemia, unspecified; K21.9 Gastro-esophageal reflux disease without esophagitis

== ENCOUNTER → 2021-08-30 | Outpatient (CLI) | payer MEDICARE, OTHER ==
[~2021-08-30] MED LIST changes: -ACETAMINOPHEN 500 MG TAB PO ONE; +ASPI-551 PO; +COLA100C5 PO; -CelecoXIB 400 MG CAP PO ONE; -GABAPENTIN 300 MG CAP PO ONE; -LR 1,000 ML IV ONE; +OMEP-218 PO; -ONDANSETRON 4MG/2ML VIAL IV ONE; +OXYC-517 PO; +SENN18TA PO; -VANCOMYCIN HCL 1,000 MG, VIAL MATE ADAPTER 1 EACH in NS 250 ML IV ONE
--- NOTE | 2021-08-30 11:48 | REP ---
INDICATION: RT ARTIFICIAL KNEE. COMPARISON: 08/15/2021 TECHNIQUE: AP, lateral, sunrise views of the right knee FINDINGS: Patient is status post right knee replacement with stable satisfactory positioning to the orthopedic hardware. Postsurgical changes have decreased. Continued anterior swelling and effusion cannot be excluded. IMPRESSION: Stable appearance to the knee replacement hardware. <Electronically signed by Klaus Ríos > 08/30/21 1147
== END ==
LOC: M SOG 11:11
PROVIDERS: ATTEND Orthopaedic Surgery Adult Reconstructive Orthopaedic Surgery
DX: Z96.651 Presence of right artificial knee joint (principal)

== ENCOUNTER → 2021-10-09 | Outpatient (CLI) | payer MEDICARE, OTHER ==
[~2021-10-09] MED LIST changes: +CEPH500T PO; +CLIN150C17 PO; +OMEP-173 PO; -OMEP-218 PO; -OMEP-221 PO; +OMEP40CA5 PO
== END ==
LOC: M SOG 10:08
PROVIDERS: ATTEND Orthopaedic Surgery Adult Reconstructive Orthopaedic Surgery
DX: Z96.651 Presence of right artificial knee joint (principal)

== ENCOUNTER → 2021-11-15 | Outpatient (CLI) | payer MEDICARE, OTHER | LOC: M SOG 14:15 | PROVIDERS: ATTEND Orthopaedic Surgery Adult Reconstructive Orthopaedic Surgery | DX: Z96.651 Presence of right artificial knee joint (principal) ==

== ENCOUNTER → 2021-11-15 | Outpatient (CLI) | payer MEDICARE, OTHER ==
[2021-11-15 18:05] LABS: BASO # 0.1 10^3/uL (0.0-0.2); BASO % 0.5 % (0.0-1.0); EOS # 0.2 10^3/uL (0.0-0.5); EOS % 1.6 % (0.0-3.0); HEMATOCRIT 42.1 % (36.0-47.0); HEMOGLOBIN 13.5 g/dl (12.0-15.5); LYMPH # 2.2 10^3/uL (1.5-5.0); MEAN CORPUSCULAR HEMOGLOBIN 30.5 pg (27.0-33.0); MEAN CORPUSCULAR HGB CONC 32.1 g/dl (32.0-36.5); MEAN CORPUSCULAR VOLUME 95.2 fl (80.0-96.0); MONO # 1.1 10^3/uL (0.0-0.8); MONO % 8.4 % (2.0-8.0); NEUTROPHILS # 9.2 10^3/uL (1.5-8.5); NEUTROPHILS % 72.1 % (36.0-66.0); PLATELET COUNT, AUTOMATED 360 10^3/uL (150-450); RED BLOOD COUNT 4.42 10^6/uL (4.00-5.40); WHITE BLOOD COUNT 12.7 10^3/uL (4.0-10.0)
[2021-11-15 20:14] LABS: ERYTHROCYTE SEDIMENTATION RATE 47 mm/hr (0-30)
== END ==
LOC: M PLALAB 15:32
PROVIDERS: ATTEND Orthopaedic Surgery Adult Reconstructive Orthopaedic Surgery
DX: Z96.651 Presence of right artificial knee joint (principal)

== ENCOUNTER → 2021-11-17 | Outpatient (CLI) | payer MEDICARE, OTHER | LOC: M RAD 14:38 | PROVIDERS: ATTEND Orthopaedic Surgery Adult Reconstructive Orthopaedic Surgery | DX: Z96.651 Presence of right artificial knee joint (principal) ==

== ENCOUNTER → 2021-12-29 | Outpatient (CLI) | payer MEDICARE, OTHER | LOC: M SOG 08:11 | PROVIDERS: ATTEND Orthopaedic Surgery Adult Reconstructive Orthopaedic Surgery | DX: Z96.651 Presence of right artificial knee joint (principal) ==

== ENCOUNTER → 2022-06-07 | Outpatient (CLI) | payer MEDICARE, OTHER ==
[2022-06-07 13:06] LABS: BASO # 0.1 10^3/uL (0.0-0.2); BASO % 0.7 % (0.0-1.0); EOS # 0.2 10^3/uL (0.0-0.5); EOS % 1.9 % (0.0-3.0); HEMATOCRIT 43.8 % (36.0-47.0); LYMPH # 1.5 10^3/uL (1.5-5.0); LYMPH % 17.3 % (24.0-44.0); MEAN CORPUSCULAR HEMOGLOBIN 31.5 pg (27.0-33.0); MEAN CORPUSCULAR VOLUME 98.4 fl (80.0-96.0); MONO # 0.9 10^3/uL (0.0-0.8); MONO % 9.9 % (2.0-8.0); NEUTROPHILS # 6.2 10^3/uL (1.5-8.5); NEUTROPHILS % 69.9 % (36.0-66.0); PLATELET COUNT, AUTOMATED 275 10^3/uL (150-450); RED BLOOD COUNT 4.45 10^6/uL (4.00-5.40); WHITE BLOOD COUNT 8.8 10^3/uL (4.0-10.0)
[2022-06-07 14:03] LABS: CREATININE, URINE 71.3 MG/DL; MALB URINE SIEMENS < 5.0 MG/L
[2022-06-07 14:05] LABS: ALBUMIN 3.5 GM/DL (3.2-5.2); ALT/SGPT 18 U/L (12-78); BILIRUBIN,TOTAL 0.6 MG/DL (0.2-1.0); BLOOD UREA NITROGEN 13 MG/DL (7-18); CALCIUM LEVEL 9.1 MG/DL (8.8-10.2); CARBON DIOXIDE LEVEL 28 MEQ/L (21-32); CHLORIDE LEVEL 108 MEQ/L (98-107); CHOLESTEROL LEVEL 181 MG/DL (<200); CHOLESTEROL RISK RATIO 4.525 (<5); CREATININE FOR GFR 0.77 MG/DL (0.55-1.30); GLOMERULAR FILTRATION RATE > 60.0 (>39); GLUCOSE, FASTING 129 MG/DL (70-100); HDL CHOLESTEROL 40 MG/DL (>40); LDL CHOLESTEROL 111 MG/DL (<100); NON-HDL-C 141 MG/DL; POTASSIUM SERUM 5.3 MEQ/L (3.5-5.1); SODIUM LEVEL 139 MEQ/L (136-145); TOTAL PROTEIN 6.7 GM/DL (6.4-8.2); TRIGLYCERIDES LEVEL 152 MG/DL (<150)
[2022-06-07 14:41] LABS: TOTAL 25(OH) VITAMIN D 17.7 NG/ML (30.0-100.0)
== END ==
LOC: M LABDRWAD 08:32
PROVIDERS: ATTEND Family Medicine
DX: E55.9 Vitamin D deficiency, unspecified (principal); E11.9 Type 2 diabetes mellitus without complications; Z79.899 Other long term (current) drug therapy

== ENCOUNTER → 2022-08-15 | Outpatient (CLI) | payer MEDICARE, OTHER | LOC: M SOG 07:51 | PROVIDERS: ATTEND Orthopaedic Surgery Adult Reconstructive Orthopaedic Surgery | DX: M17.12 Unilateral primary osteoarthritis, left knee (principal); Z96.651 Presence of right artificial knee joint ==

== ENCOUNTER → 2023-01-24 | Outpatient (CLI) | payer MEDICARE, OTHER | LOC: M PLAIMG 12:17 | PROVIDERS: ATTEND Family Medicine | DX: R22.1 Localized swelling, mass and lump, neck (principal) ==

== ENCOUNTER → 2023-03-20 | Outpatient (CLI) | payer MEDICARE, OTHER ==
[~2023-03-20] MED LIST changes: +SENN-111 PO; -SENN18TA PO
== END ==
LOC: M PLALAB 12:17
PROVIDERS: ATTEND Nurse Practitioner Family
DX: Z01.419 Encounter for gynecological examination (general) (routine) without abnormal findings (principal); Z80.0 Family history of malignant neoplasm of digestive organs; Z80.41 Family history of malignant neoplasm of ovary

== ENCOUNTER → 2023-03-20 | Outpatient (CLI) | payer MEDICARE, OTHER | LOC: M WHC 10:55 | PROVIDERS: ATTEND Nurse Practitioner Family | DX: Z12.31 Encounter for screening mammogram for malignant neoplasm of breast (principal) ==

== ENCOUNTER → 2023-05-10 | Outpatient (CLI) | payer MEDICARE, OTHER ==
[2023-05-10 09:30] LABS: BASO # 0.1 10^3/uL (0.0-0.2); BASO % 0.5 % (0.0-1.0); EOS # 0.2 10^3/uL (0.0-0.5); EOS % 1.9 % (0.0-3.0); HEMATOCRIT 43.9 % (36.0-47.0); HEMOGLOBIN 13.9 g/dl (12.0-15.5); LYMPH # 2.2 10^3/uL (1.5-5.0); LYMPH % 23.6 % (24.0-44.0); MEAN CORPUSCULAR HEMOGLOBIN 31.6 pg (27.0-33.0); MEAN CORPUSCULAR HGB CONC 31.7 g/dl (32.0-36.5); MEAN CORPUSCULAR VOLUME 99.8 fl (80.0-96.0); MONO # 0.9 10^3/uL (0.0-0.8); MONO % 9.7 % (2.0-8.0); NEUTROPHILS % 63.8 % (36.0-66.0); PLATELET COUNT, AUTOMATED 289 10^3/uL (150-450); WHITE BLOOD COUNT 9.5 10^3/uL (4.0-10.0)
[2023-05-10 09:51] LABS: HEMOGLOBIN A1c 6.3 % (4.0-6.0)
[2023-05-10 10:07] LABS: MAU/CREAT RATIO 5.5 MCG/MG (0.0-30.0)
[2023-05-10 12:19] LABS: ALBUMIN 3.4 G/DL (3.2-5.2); ALKALINE PHOSPHATASE 106 U/L (46-116); ALT/SGPT 16 U/L (7.0-40); AST/SGOT 16 U/L (<34); BILIRUBIN,TOTAL 0.6 MG/DL (0.3-1.2); BLOOD UREA NITROGEN 12 MG/DL (9-23); CALCIUM LEVEL 8.8 MG/DL (8.3-10.6); CARBON DIOXIDE LEVEL 29 MMOL/L (20-31); CHLORIDE LEVEL 104 MMOL/L (98-107); CHOLESTEROL LEVEL 181 MG/DL (<200); CHOLESTEROL RISK RATIO 4.64 (<5); CREATININE FOR GFR 0.76 MG/DL (0.55-1.30); GLOMERULAR FILTRATION RATE > 60.0 (>39); GLUCOSE, FASTING 134 MG/DL (74-106); LDL CHOLESTEROL 107.8 MG/DL (<100); POTASSIUM SERUM 4.4 MMOL/L (3.5-5.1); SODIUM LEVEL 138 MMOL/L (136-145); TOTAL 25(OH) VITAMIN D 30.6 NG/ML (20.0-100.0); TOTAL PROTEIN 6.7 G/DL (5.7-8.2); TRIGLYCERIDES LEVEL 171 MG/DL (<150)
== END ==
LOC: M WUC 08:05
PROVIDERS: ATTEND Family Medicine
DX: E55.9 Vitamin D deficiency, unspecified (principal); E11.69 Type 2 diabetes mellitus with other specified complication; Z79.899 Other long term (current) drug therapy

== ENCOUNTER → 2023-06-05 | Outpatient (CLI) | payer MEDICARE, OTHER | LOC: M WUC 13:48 | PROVIDERS: ATTEND Family Medicine | DX: R05.9 Cough, unspecified (principal) ==

== ENCOUNTER → 2024-03-23 | Outpatient (CLI) | payer MEDICARE, OTHER | LOC: M WHC 10:02 | PROVIDERS: ATTEND Nurse Practitioner Family | DX: Z12.31 Encounter for screening mammogram for malignant neoplasm of breast (principal); Z13.820 Encounter for screening for osteoporosis; M85.851 Other specified disorders of bone density and structure, right thigh; Z80.0 Family history of malignant neoplasm of digestive organs; Z80.3 Family history of malignant neoplasm of breast; Z80.41 Family history of malignant neoplasm of ovary ==

== ENCOUNTER → 2024-03-23 | Outpatient (REF) | payer MEDICARE, OTHER | LOC: M SFHCWAGY 13:06 | PROVIDERS: ATTEND Nurse Practitioner Family | DX: N73.9 Female pelvic inflammatory disease, unspecified (principal); R30.0 Dysuria ==

== ENCOUNTER → 2024-04-21 | Outpatient (CLI) | payer MEDICARE, OTHER | LOC: M PLAIMG 14:20 | PROVIDERS: ATTEND Family Medicine | DX: M25.552 Pain in left hip (principal); M85.88 Other specified disorders of bone density and structure, other site; M51.36 Other intervertebral disc degeneration, lumbar region ==

== ENCOUNTER → 2024-05-20 | Outpatient (CLI) | payer MEDICARE, OTHER ==
[2024-05-20 12:22] LABS: BASO # 0.1 10^3/uL (0.0-0.2); BASO % 0.6 % (0.0-1.0); EOS # 0.3 10^3/uL (0.0-0.5); EOS % 2.6 % (0.0-3.0); HEMATOCRIT 44.7 % (36.0-47.0); HEMOGLOBIN 14.5 g/dl (12.0-15.5); LYMPH # 2.2 10^3/uL (1.5-5.0); LYMPH % 23.1 % (24.0-44.0); MEAN CORPUSCULAR HEMOGLOBIN 32.7 pg (27.0-33.0); MEAN CORPUSCULAR HGB CONC 32.4 g/dl (32.0-36.5); MEAN CORPUSCULAR VOLUME 100.9 fl (80.0-96.0); MONO % 10.7 % (2.0-8.0); NEUTROPHILS % 62.5 % (36.0-66.0); PLATELET COUNT, AUTOMATED 297 10^3/uL (150-450); RED BLOOD COUNT 4.43 10^6/uL (4.00-5.40); WHITE BLOOD COUNT 9.7 10^3/uL (4.0-10.0)
[2024-05-20 12:47] LABS: CREATININE, URINE 100.9 MG/DL; MALB URINE SIEMENS < 3.0 MG/L; MAU/CREAT RATIO 2.9 MCG/MG (0.0-30.0)
[2024-05-20 12:48] LABS: ALBUMIN 3.4 G/DL (3.2-5.2); ALKALINE PHOSPHATASE 115 U/L (46-116); ALT/SGPT 17 U/L (7.0-40); AST/SGOT 18 U/L (<34); BILIRUBIN,TOTAL 0.4 MG/DL (0.3-1.2); BLOOD UREA NITROGEN 12 MG/DL (9-23); CALCIUM LEVEL 9.4 MG/DL (8.3-10.6); CARBON DIOXIDE LEVEL 30 MMOL/L (20-31); CHLORIDE LEVEL 107 MMOL/L (98-107); CHOLESTEROL LEVEL 178 MG/DL (<200); CHOLESTEROL RISK RATIO 4.69 (<5); GLOMERULAR FILTRATION RATE > 60.0 (>39); GLUCOSE, FASTING 154 MG/DL (74-106); HDL CHOLESTEROL 37.9 MG/DL (>40); LDL CHOLESTEROL 107.9 MG/DL (<100); NON-HDL-C 140.1 MG/DL; POTASSIUM SERUM 4.6 MMOL/L (3.5-5.1); SODIUM LEVEL 141 MMOL/L (136-145); TOTAL PROTEIN 6.7 G/DL (5.7-8.2); TRIGLYCERIDES LEVEL 161 MG/DL (<150)
[2024-05-20 12:50] LABS: TOTAL 25(OH) VITAMIN D 32.5 NG/ML (20.0-100.0)
[2024-05-20 13:42] LABS: HEMOGLOBIN A1c 6.7 % (4.0-6.0)
== END ==
LOC: M WUC 09:42
PROVIDERS: ATTEND Family Medicine
DX: E55.9 Vitamin D deficiency, unspecified (principal); E11.69 Type 2 diabetes mellitus with other specified complication

== ENCOUNTER → 2025-03-24 | Outpatient (CLI) | payer MEDICARE, OTHER ==
[~2025-03-24] MED LIST changes: -SENN-111 PO; +SENN-165 PO
== END ==
LOC: M WHC 10:22
PROVIDERS: ATTEND Nurse Practitioner Family
DX: Z12.31 Encounter for screening mammogram for malignant neoplasm of breast (principal); R92.323 Mammographic fibroglandular density, bilateral breasts

== ENCOUNTER → 2025-05-20 | Outpatient (CLI) | payer MEDICARE, OTHER ==
[2025-05-20 14:38] LABS: BASO # 0.1 10^3/uL (0.0-0.2); BASO % 0.8 % (0.0-1.0); EOS # 0.2 10^3/uL (0.0-0.5); EOS % 2.2 % (0.0-3.0); LYMPH # 2.1 10^3/uL (1.5-5.0); LYMPH % 22.5 % (24.0-44.0); MONO # 0.9 10^3/uL (0.0-0.8); MONO % 9.4 % (2.0-8.0); NEUTROPHILS # 6.0 10^3/uL (1.5-8.5); NEUTROPHILS % 64.8 % (36.0-66.0); PLATELET COUNT, AUTOMATED 297 10^3/uL (150-450)
[2025-05-20 15:09] LABS: CREATININE, URINE 96.5 MG/DL
[2025-05-20 15:10] LABS: MALB URINE SIEMENS < 3.0 MG/L
[2025-05-20 15:13] LABS: ALT/SGPT 17.0 U/L (7.0-40); AST/SGOT 22.0 U/L (<34); CALCIUM LEVEL 9.2 MG/DL (8.3-10.6); CARBON DIOXIDE LEVEL 28.0 MMOL/L (20-31); CHLORIDE LEVEL 102.0 MMOL/L (98-107); CHOLESTEROL LEVEL 173.0 MG/DL (<200); CHOLESTEROL RISK RATIO 4.12 (<5); CREATININE FOR GFR 0.84 MG/DL (0.55-1.30); GLOMERULAR FILTRATION RATE 72.9 (>39); LDL CHOLESTEROL 92.9 MG/DL (<100); NON-HDL-C 131.1 MG/DL; POTASSIUM SERUM 5.3 MMOL/L (3.5-5.1); SODIUM LEVEL 139.0 MMOL/L (136-145); TRIGLYCERIDES LEVEL 191.0 MG/DL (<150)
[2025-05-20 15:15] LABS: TOTAL 25(OH) VITAMIN D 57.2 NG/ML (20.0-100.0)
[2025-05-20 15:27] LABS: ESTIMATED AVERAGE GLUCOSE 154.0 MG/DL (60-110)
== END ==
LOC: M WUC 10:35
PROVIDERS: ATTEND Family Medicine
DX: E11.69 Type 2 diabetes mellitus with other specified complication (principal); E55.9 Vitamin D deficiency, unspecified